=== PATIENT | male | born 1940 | race Caucasian/White ===

== ENCOUNTER 2019-01-08 13:14 | Inpatient (IN) ==
[2019-01-08] MEDS ORDERED: ZOFRAN IV PRN (13:58)
[2019-01-08] MEDS ORDERED: NS 500 ML IV ONE (14:01)
[2019-01-08] MEDS ORDERED: MYLICON PO PRN (14:09)
[2019-01-08 16:57] LABS: BASO# 0.01 X1000 (0.0-0.2); BASO% 0.1 % (0.0-0.8); HEMATOCRIT 35.6 % (42.0-52.0); HEMOGLOBIN 11.4 g/dL (14.0-18.0); LYMPH# 1.07 X1000 (1.2-3.4); LYMPH% 10.9 % (20.5-51.1); MCH 27.7 PG (27-31); MCV 86.4 FL (81-99); MONO# 0.49 X1000 (0.11-0.59); MPV 9.7 FL (7.4-10.4); NEUT# 8.22 X1000 (1.4-6.5); PLT 204 X1000 (130-400); RBC 4.12 XMIL (4.7-6.1); RDW 15.8 % (11.5-14.5); WBC 9.79 X1000 (4.8-10.8)
[2019-01-08 17:09] LABS: INR 1.29; PROTIME 17.1 Seconds (11.0-16.0)
[2019-01-08 17:10] LABS: PTT 38.9 Seconds (22.3-41.8)
[2019-01-08 17:12] LABS: ALB/GLOB RATIO 1.2; ALBUMIN 3.7 g/dL (3.5-5.0); CREATININE 1.6 mg/dL (0.7-1.2); POTASSIUM 4.6 mmol/L (3.5-5.1); TOTAL BILIRUBIN 0.59 mg/dL (0.20-1.00); TOTAL PROTEIN 6.9 g/dL (6.3-8.3)
--- NOTE | 2019-01-08 19:03 | Diag Imaging Result Doc PS360 ---
EXAM: FLAT/UPRIGHT ABD/1 VIEW CHEST INDICATION: vomiting/diarrhea TECHNIQUE: 3 views COMPARISON: 03/29/2018 FINDINGS: There are multiple air-fluid levels throughout the abdomen. It appears to be predominantly colonic indicating a diarrheal illness. There are probably a few small bowel air-fluid levels in the left upper quadrant, however. There is no evidence of large volume free abdominal gas. There is no evidence of organomegaly. The lungs are grossly clear. There is no discrete pleural fluid collection or pneumothorax. The cardiomediastinal silhouette and central vasculature are grossly unremarkable. IMPRESSION: Nonspecific air-fluid levels throughout the abdomen that is predominantly colonic. Electronically signed by Aj Kent 01/08/2019 7:01 PM
[2019-01-08] MEDS: ZYLOPRIM PO SCH (19:52)
[2019-01-08] MEDS: DELZICOL PO SCH (19:53)
[2019-01-08] MEDS: FLOMAX PO SCH (21:31)
--- NOTE | 2019-01-09 00:38 | HISTORY AND PHYSICAL ---
CHIEF COMPLAINT: Weakness, low blood, pressure, and nausea, vomiting, diarrhea. HISTORY OF PRESENT ILLNESS: The patient is a 78-year-old white male followed in my medical practice. He is also followed by Dr. Marino and by Dr. Banks. He had gone to Dr. Banks's office today but began feeling very weak and has been worsening over the past 2 weeks in that regard. He has had low blood pressure today in Dr. Banks's office and felt weak, as if he were going to pass out. He has developed nausea and vomiting, and some diarrhea, and abdominal bloating has been worsened recently, over the past 2 weeks. He has not been eating well nor drinking fluids, not been sleeping well at night at all. 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 Also, he suffers from some moderate renal insufficiency. MEDICATIONS: Prior to admission are Klor-Con 10 mEq, 1 p.o. every other day, he is off Lasix, he is on Aldactone 25 mg p.o. q.a.m., Eliquis 2.5 mg p.o. b.i.d., allopurinol 100 mg p.o. b.i.d., Flomax 0.4 mg p.o. b.i.d., Delzicol 400 mg, 2 tabs p.o. b.i.d., Phazyme 250 mg p.o. 4 times a day p.r.n. ALLERGIES: Bactrim, caused a metallic taste in his mouth in January 2018. PAST HISTORY: 1. Ulcerative colitis diagnosed 1989. 2. Hypertension diagnosed 1988. 3. Osteoarthritis. 4. Renal insufficiency. 5. BPH. 6. Gout diagnosed 2005. 7. Cirrhosis of the liver over the past couple years, followed by Dr. Marino. 8. DVT within the past few months. PAST SURGICAL HISTORY: 1. BCC removal from his nose. 2. Laparoscopic cholecystectomy December 2017. IMMUNIZATIONS: Pneumovax 23 given 01/07/2008 and 11/22/2017. Zostavax given 01/17/2013. Prevnar 13 given 08/19/2013. FAMILY HISTORY: Notable for hypertension in his mother. No diabetes in the family. Stroke in his maternal grandmother. RA in his father. Paternal grandfather with prostate cancer. Throat cancer in maternal grandfather. SD in his father and 3 uncles. SOCIAL HISTORY: Patient lives in [place]. He is remarried after being in 2004. Has 1 daughter. Retired from [employer]. Never been a smoker. Does not drink any alcohol. REVIEW OF SYSTEMS: Negative except as above, except patient with history of DVT right lower extremity back a few months ago, on chronic anticoagulation per Dr. Banks's recommendation. PHYSICAL EXAM: VITAL SIGNS: Blood pressure 102/62, pulse 91, height 5 feet 9 inches tall, is unable to obtain weight as he was unable to stand up on the scale. SKIN: Pale appearing, ill appearing. HEENT: FRAN, EOMI, sclerae anicteric. OP, there is some redness and dryness to the tongue. NECK: No LA, TMG, JVD, or bruits. CARDIOVASCULAR: RRR without murmur. LUNGS: CTA. BACK: No tenderness to palpation. No CVA tenderness. ABDOMEN: There is ascites noted on exam with some bloating. Active bowel sounds. GENITOURINARY/RECTAL: Deferred. EXTREMITIES: No calf tenderness, cords, or edema. NEUROLOGIC: Cranial nerves are intact. Moves all extremities well. No asterixis. ASSESSMENT: 1. Hypotension. 2. Generalized weakness. 3. Nausea, vomiting, diarrhea. 4. Anorexia. 5. Insomnia. 6. Cirrhosis of the liver, followed by Dr. Marino of idiopathic origin. 7. Chronic renal insufficiency, followed by Dr. Rea. 8. Anemia of chronic disease. 9. History of deep venous thrombosis right lower extremity, thought related to cirrhosis. 10. Gout. 11. Osteoarthritis. PLAN: Will admit the patient. Give him IV bolus of normal saline initially and check extensive labs to include CBC with differential, CMP, amylase, lipase, PT, PTT. We will check repeat venous Doppler right lower extremity. Check flat and upright of the abdomen and 1 view of the chest. Keep him n.p.o. except for medications, and we will continue current medications, especially leaving him on the Eliquis at this point. We will give him Zofran as needed for nausea, vomiting. Consider placement of a NG tube if he worsens in any way. cc: Maxx Vasquez MD
[2019-01-09] MEDS: ZYLOPRIM PO SCH ×3 (02:09→20:19)
[2019-01-09] MEDS: DELZICOL PO SCH ×3 (02:09→20:20)
[2019-01-09] MEDS ORDERED: OXY IR PO PRN (08:37)
[2019-01-09] MEDS: ALDACTONE PO SCH (08:50)
[2019-01-09] MEDS ORDERED: FLOMAX PO SCH (09:00)
--- NOTE | 2019-01-09 09:00 | PROGRESS NOTE ---
DATE: 01/09/2019 SUBJECTIVE: Patient had a difficult time last night with restless legs, unable to sleep. Abdominal pain was fair. He had no nausea and vomiting after some Zofran. He had 4 loose bowel movements since admission. OBJECTIVE: Vital signs: Afebrile, pulse 65, respirations 16, blood pressure 108/61. CARDIOVASCULAR: Regular rhythm and rate without distinct murmur. Lungs: Clear. Abdomen: Soft. Less bloating and distention noted. Still some mild bloating noted. This may be bloating instead of ascites as I initially thought. There are active bowel sounds. Extremities: No calf tenderness, cords or edema. Neurologic: Cranial nerves are intact. He is pale appearing. Venous Doppler right lower extremity done last evening. No results back yet. LABORATORY DATA/IMAGING: Reviewed from yesterday was good overall with satisfactory CBC, CMP, magnesium, PT, PTT. Flat and upright of the abdomen revealed prominent air-fluid levels in the colon, primarily. ASSESSMENT: 1. Hypotension, improved. 2. Generalized weakness, improved. 3. Nausea, vomiting, and diarrhea with colonic air-fluid levels and history of some ileus in the past. 4. Cirrhosis, idiopathic in nature. 5. Restless legs syndrome/insomnia. 6. Chronic renal insufficiency. 7. Anemia of chronic disease. 8. History of deep venous thrombosis right lower extremity, thought related to cirrhosis, on chronic Eliquis treatment now, and followed by Dr. Banks. 9. Gout. 10. Osteoarthritis. PLAN: We will give him clear liquids. Give him low-dose maintenance intravenous fluids after he received a bolus of normal saline yesterday. Continue Zofran. We will monitor his bowel movements. We will check stool studies. We will continue the Eliquis and his home medications. We will add Requip for restless legs syndrome. cc: Maxx Vasquez MD
[2019-01-09] MEDS: ELIQUIS PO SCH ×2 (10:41→20:19)
[2019-01-09] MEDS: POTASSIUM CHLORIDE 10 MEQ in NS 1,000 ML IV SCH (10:41)
[2019-01-09] MEDS: REQUIP PO SCH (20:19)
[2019-01-09] MEDS: FLOMAX PO SCH (20:20)
--- NOTE | 2019-01-10 08:54 | PROGRESS NOTE ---
DATE: 01/10/2019 SUBJECTIVE: Patient is still having some restless legs, but he saw some improvement with the Requip, although possibly had some mild side effects of the Requip, which is tolerable to the patient at this time. Still having occasional bloating, gas and diarrheal stools, but these are less than 4 a day. Feels like the bloating has improved some. OBJECTIVE: Vital Signs: Afebrile, pulse 67, respirations 18, blood pressure 106/56, O2 saturation on room air 98-100%. CV: RRR without murmur. Lungs: Cannot rule out minimal crackle, left lung base. Abdomen: Softer, less bloating, hyperactive bowel sounds noted. No pinpoint tenderness or mass. Extremities: No calf tenderness, cords or edema. Neurologic: Nonfocal. DIAGNOSTIC DATA: Stool study showed negative studies for WBCs, C difficile toxin and occult blood negative. Stool culture in progress, negative thus far. ASSESSMENT: 1. Hypotension, resolved. 2. Generalized weakness, improved. 3. Nausea, vomiting, and diarrhea. Overall improved. We will repeat flat and upright of the abdomen and 1 view of the chest today. 4. Idiopathic cirrhosis. 5. Restless leg syndrome/insomnia. 6. Chronic renal insufficiency. 7. Anemia of chronic disease. 8. History of deep vein thrombosis, right lower extremity, thought related to cirrhosis, now on chronic Eliquis treatment per Dr. Banks. 9. Gout. 10. Osteoarthritis. PLAN: We will ambulate the patient, increased to full liquids. Continue Requip at night for the restless legs. Will monitor for worsened side effects. Continue Eliquis for remote DVT. Consider addition of Welchol to bulk the stools if not improved in a day or two, but for now these are less than 4 a day. Await x-ray results today. cc: Maxx Vasquez MD
--- NOTE | 2019-01-10 08:59 | Diag Imaging Result Doc PS360 ---
EXAM: FLAT/UPRIGHT ABD/1 VIEW CHEST 01/10/2019 HISTORY: f/u diarrhea/abd pain TECHNIQUE: PA chest and flat and upright abdomen COMMENT: There is gas, fluid and some solid fecal debris in the colon. The small bowel is not distended. There is no evidence of organomegaly or mass. The appearance of the chest has not changed significantly since the previous study of 01/08/2019. IMPRESSION: Nonspecific abdomen, the possibility of enterocolitis cannot be excluded. Electronically signed by Robin Milligan 01/10/2019 8:57 AM
[2019-01-10] MEDS: POTASSIUM CHLORIDE 10 MEQ in NS 1,000 ML IV SCH (09:22)
[2019-01-10] MEDS: ZYLOPRIM PO SCH ×2 (09:30→21:01)
[2019-01-10] MEDS: ALDACTONE PO SCH (09:30)
[2019-01-10] MEDS: ELIQUIS PO SCH ×2 (09:30→21:01)
[2019-01-10] MEDS: DELZICOL PO SCH ×2 (09:31→21:00)
--- NOTE | 2019-01-10 18:55 | Extremity Venous Study ---
PROCEDURE NAME: Venous U/S Right Leg - 01/08/2019 REQUESTING PHYSICIAN: Maxx Vasquez MD READING PHYSICIAN: Edwin Corbin MD CLIENT ACCOUNT REPRESENTATIVE: [place]. INDICATION: Followup of DVT of the right leg. There is a comparison study on 03/29/2018. FINDINGS: Deep and superficial veins of the right lower extremity were imaged throughout their course. They are compressible and patent; however, there is chronic thrombus present in the right superficial femoral and popliteal veins. INTERPRETATION: Chronic deep venous thrombosis is present in the right superficial femoral and popliteal veins. This is improved compared to the prior study on 03/29/2018. cc: MD Maxx Chavarria MD
[2019-01-10] MEDS: FLOMAX PO SCH (21:01)
[2019-01-10] MEDS: REQUIP PO SCH (21:01)
[2019-01-11 06:14] LABS: BASO# 0.01 X1000 (0.0-0.2); BASO% 0.2 % (0.0-0.8); EOS# 0.09 X1000 (0.0-0.7); EOS% 1.8 % (0.0-10.0); HEMATOCRIT 26.6 % (42.0-52.0); HEMOGLOBIN 8.3 g/dL (14.0-18.0); LYMPH# 1.61 X1000 (1.2-3.4); LYMPH% 31.9 % (20.5-51.1); MCH 27.1 PG (27-31); MCHC 31.2 g/dL (33-37); MCV 86.9 FL (81-99); MONO# 0.35 X1000 (0.11-0.59); MONO% 6.9 % (1.7-9.3); MPV 9.7 FL (7.4-10.4); NEUT# 2.98 X1000 (1.4-6.5); NEUT% 59.2 % (42.2-75.2); PLT 175 X1000 (130-400); RBC 3.06 XMIL (4.7-6.1); RDW 15.5 % (11.5-14.5); WBC 5.04 X1000 (4.8-10.8)
[2019-01-11 06:54] LABS: AGAP 11; ALB/GLOB RATIO 1.3; ALBUMIN 2.9 g/dL (3.5-5.0); ALKALINE PHOSPHATASE 85 U/L (32-122); BUN 10 mg/dL (8-22); CALCIUM 8.3 mg/dL (8.8-10.2); CHLORIDE 109 mmol/L (98-107); COSMO 276; CREATININE 1.1 mg/dL (0.7-1.2); ESTIMATED GFR > 60; GLUCOSE 94 mg/dL (70-104); GOT 11 U/L (10-34); GPT < 5 U/L (10-44); POTASSIUM 4.4 mmol/L (3.5-5.1); SODIUM 139 mmol/L (136-145); TCO2 19 mmol/L (25-35); TOTAL BILIRUBIN 0.28 mg/dL (0.20-1.00); TOTAL PROTEIN 5.2 g/dL (6.3-8.3)
[2019-01-11 07:44] LABS: SED RATE 8 mm/hr (0-15)
[2019-01-11] MEDS ORDERED: WELCHOL PO SCH (09:00)
[2019-01-11] MEDS ORDERED: POTASSIUM CHLORIDE 10 MEQ in NS 1,000 ML IV SCH (09:00)
[2019-01-11] MEDS: DELZICOL PO SCH ×3 (09:30→21:28)
[2019-01-11] MEDS: ZYLOPRIM PO SCH ×3 (09:31→21:29)
[2019-01-11] MEDS: ELIQUIS PO SCH ×3 (09:33→21:28)
[2019-01-11] MEDS: ALDACTONE PO SCH (09:33)
[2019-01-11] MEDS ORDERED: FLOMAX PO ONE (12:32)
--- NOTE | 2019-01-11 16:31 | PROGRESS NOTE ---
DATE: 01/11/2019 SUBJECTIVE: The patient has had some watery loose stools about 2 a day and some bloating and gas, but overall improved since admission. He has had no nausea or vomiting. He has been only taken in full liquids, but has tolerated that rather well. He has been ambulating. OBJECTIVE: Vital Signs: Afebrile, pulse 58, respirations 16, blood pressure 102/58, O2 saturation on room air 98%. Cardiovascular: RRR. Lungs: CTA. Abdomen: Soft. Active bowel sounds. Mild distention. Repeated in examination later this afternoon after seeing him this morning with that exam as listed, and now we have increased his diet up to a GI soft diet and he has more bloating and he had some mild distention, still has some active bowel sounds. Extremities: No edema, calf tenderness or cords. Neurologic: Nonfocal. Cranial nerves intact. IMAGING: Abdominal x-ray done on 01/10/2019 revealed gas and fluid with some fecal debris in the colon. Small bowel not distended. No mass or organomegaly. No major change. Possibility of enterocolitis as noted per Dr. Milligan. Venous Doppler right lower extremity done on 01/08/2019 shows chronic DVT right superficial femoral and popliteal veins that is improved compared to prior study on 03/29/2018. LABORATORY DATA: Shows white count 5.04, hemoglobin has declined to 8.3 with dilution, hematocrit 26.6, MCV 86.9, platelets 175,000. Sedimentation rate 8. CMP shows improvement in creatinine down to 1.1 with some mild IV fluids given. Liver function tests normal. Albumin 2.9, total protein 5.2. Stool studies done yesterday, stool is negative for WBCs. Culture so far negative. Occult blood negative. Clostridium difficile toxin negative. ASSESSMENT: 1. Hypotension, resolved. 2. Weakness, improved. 3. Nausea, vomiting and diarrhea with some possible enterocolitis, fair. 4. History of remote ulcerative colitis followed by Dr. Marino in the past. 5. Idiopathic cirrhosis. 6. Restless legs syndrome/insomnia, somewhat improving with Requip. 7. Chronic renal insufficiency, improved with hydration. 8. Anemia of chronic disease with slight worsening, possibly somewhat dilution related. 9. Deep venous thrombosis chronic right lower extremity on chronic Eliquis treatment per Dr. Banks. 10. Gout. 11. Osteoarthritis. PLAN: Will will continue at this point the GI soft diet. We have added Welchol this morning 1 p.o. daily to try to bulk the stools. Continue Requip at night. Continue ambulation. Low IV hydration will be continued. Continue to follow stool studies. Dr. Sin will be seeing the patient this week in my absence. Possible discharge if he does well. If not would consider GI evaluation with Dr. Shaikh. cc: Maxx Vasquez MD
[2019-01-11] MEDS: FLOMAX PO SCH ×2 (19:45→21:28)
[2019-01-11] MEDS: REQUIP PO SCH ×2 (19:46→21:28)
[2019-01-12 06:24] LABS: BASO# 0.02 X1000 (0.0-0.2); BASO% 0.5 % (0.0-0.8); EOS# 0.07 X1000 (0.0-0.7); EOS% 1.7 % (0.0-10.0); HEMATOCRIT 26.3 % (42.0-52.0); HEMOGLOBIN 8.2 g/dL (14.0-18.0); LYMPH# 1.24 X1000 (1.2-3.4); LYMPH% 29.7 % (20.5-51.1); MCH 27.3 PG (27-31); MCHC 31.2 g/dL (33-37); MCV 87.7 FL (81-99); MONO% 7.2 % (1.7-9.3); MPV 9.9 FL (7.4-10.4); NEUT# 2.55 X1000 (1.4-6.5); NEUT% 60.9 % (42.2-75.2); PLT 160 X1000 (130-400); RDW 15.6 % (11.5-14.5); WBC 4.18 X1000 (4.8-10.8)
[2019-01-12] MEDS: DELZICOL PO SCH ×2 (08:59→23:07)
[2019-01-12] MEDS: WELCHOL PO SCH (08:59)
[2019-01-12] MEDS: ELIQUIS PO SCH ×2 (08:59→23:06)
[2019-01-12] MEDS: FLOMAX PO SCH ×2 (08:59→23:06)
[2019-01-12] MEDS: ZYLOPRIM PO SCH ×2 (08:59→23:07)
[2019-01-12] MEDS: ALDACTONE PO SCH (08:59)
[2019-01-12] MEDS ORDERED: SALINE LOCK IV FLUID XX ONE (11:08)
--- NOTE | 2019-01-12 11:40 | PROGRESS NOTE ---
DATE: 01/12/2019 SUBJECTIVE: Patient overall feeling better. Had a lot of gas expelled during the night. He ate a GI soft diet well and bloating has been very tolerable. He had 1 more formed stool this morning, and overall is feeling better. OBJECTIVE: Vital Signs: Afebrile, T-max 99.6 degrees, pulse 68, respirations 20, blood pressure 116/55, O2 saturation room air 100%. CV: RRR without murmur. Lungs: CTA. Abdomen: Soft abdomen. Active bowel sounds. No major bloating. No pinpoint tenderness. Extremities: Trace lower extremity edema at the ankles. Neurologic: CN 2 through 12 intact. Nonfocal. LABORATORY DATA: White count 4.188, hemoglobin 8.6, platelets 160,000. Stool studies all negative, including culture. ASSESSMENT: 1. Nausea, vomiting, diarrhea, improved/enterocolitis. 2. Ulcerative colitis, stable on medication per Dr. Marino. 3. Idiopathic cirrhosis. 4. Restless leg syndrome/insomnia, stable on Requip. 5. Chronic renal insufficiency, improved with hydration. 6. Anemia of chronic disease and some dilutional component, heme-negative stool. 7. Deep venous thrombosis, chronic, right lower extremity, on chronic Eliquis per Dr. Banks. 8. Gout. 9. Osteoarthritis. 10. Hypotension and weakness, resolved. PLAN: 1. Continue GI soft diet and 1 Welchol per day to help bulk the stools. 2. Ambulate the patient. 3. Saline lock. 4. If he continues to do well on GI soft diet, we will discharge home tomorrow. cc: Maxx Vasquez MD
[2019-01-12] MEDS: REQUIP PO SCH (23:06)
[2019-01-13] MEDS: ZYLOPRIM PO SCH (08:00)
[2019-01-13] MEDS: ELIQUIS PO SCH (08:00)
[2019-01-13] MEDS: WELCHOL PO SCH (08:00)
[2019-01-13] MEDS: ALDACTONE PO SCH (08:00)
[2019-01-13] MEDS: DELZICOL PO SCH (08:00)
[2019-01-13] MEDS: FLOMAX PO SCH (08:02)
[2019-01-13 11:24] VITALS: BP 113/52
--- NOTE | 2019-01-13 11:55 | DISCHARGE SUMMARY ---
ADMISSION DATE: 01/08/2019 DISCHARGE DATE: 01/13/2019 FINAL DIAGNOSES: 1. Ulcerative colitis. 2. Hypotension. 3. Generalized weakness. 4. Cirrhosis of idiopathic origin. 5. Chronic renal insufficiency. 6. Anemia of chronic disease. 7. Osteoarthritis. DISCHARGE MEDICATION: The usual medication at home, plus Welchol 2 g daily and Requip 1 mg at bedtime. HISTORY: This is the first recent [facility] admission for this 78-year-old white man, followed by Dr. Shaikh and Dr. Banks. He had been having progressive weakness over several weeks and had low blood pressure on admission. He had some abdominal bloating and had not been eating well. He was admitted for further evaluation and treatment. INITIAL LABORATORY: Hemoglobin 11.4, hematocrit 35.6, white blood count 9700. Sodium 135, potassium 4.6, BUN 18, creatinine 1.6, glucose 109. Liver functions normal. Amylase 30, lipase 22. HOSPITAL COURSE: He was hydrated, and BUN and creatinine improved to 10 and 1.1. Total protein is low at 5.2 and albumin 2.9. In addition to hydration, he was started on Requip for restless legs syndrome and given Welchol which seemed to help his abdominal discomfort and bloating. He has tolerated a GI soft diet for a couple of days and is ambulating. DISPOSITION: He is discharged home on the above medications to see Dr. Vasquez in about a week for follow-up. cc: MD Maxx Tubbs MD
== END 2019-01-13 13:02 | disposition home or self-care (01) | DRG 386 ==
LOC: DIRADM 13:14 → 4N 13:34
PROVIDERS: ADMIT Family Medicine; ATTEND Family Medicine
CPT/HCPCS: 74022; 80053; 82150; 82270; 83690; 83735; 84376; 85025; 85610; 85651; 85730; 87045; 87046; 87205; 87324; 89055; 93971; 94761; A9270; J3480; J7030; J7040

== ENCOUNTER 2019-03-15 15:10 | Inpatient (IN) ==
[2019-03-15] MEDS ORDERED: ZOFRAN IV ONE (15:33)
[2019-03-15] MEDS ORDERED: NS 500 ML IV ONE (15:33)
[2019-03-15 16:00] LABS: BASO# 0.01 X1000 (0.0-0.2); BASO% 0.1 % (0.0-0.8); EOS# 0.01 X1000 (0.0-0.7); EOS% 0.1 % (0.0-10.0); HEMATOCRIT 22.5 % (42.0-52.0); HEMOGLOBIN 6.8 g/dL (14.0-18.0); IMM GRAN# 0.02 X1000 (0.0-0.04); IMM GRAN% 0.2 % (0.0-0.5); LYMPH# 1.39 X1000 (1.2-3.4); LYMPH% 11.9 % (20.5-51.1); MCH 23.7 PG (27-31); MCHC 30.2 g/dL (33-37); MCV 78.4 FL (81-99); MONO# 0.59 X1000 (0.11-0.59); MONO% 5.1 % (1.7-9.3); MPV 8.7 FL (7.4-10.4); NEUT# 9.62 X1000 (1.4-6.5); NEUT% 82.6 % (42.2-75.2); PLT 412 X1000 (130-400); RBC 2.87 XMIL (4.7-6.1); RDW 16.1 % (11.5-14.5); WBC 11.64 X1000 (4.8-10.8)
--- NOTE | 2019-03-15 16:14 | Diag Imaging Result Doc PS360 ---
FLAT/UPRIGHT ABD/1 VIEW CHEST - 03/15/2019 INDICATION: distention TECHNIQUE: COMPARISON: 01/10/2019 FINDINGS: The chest is clear. There is high-grade dilation of much of the small bowel. Small bowel loops measure up to 6 cm in caliber. No definite rectal gas. No free air. IMPRESSION: High-grade small bowel obstruction. Electronically signed by Alfredo Goldsmith 03/15/2019 4:12 PM
[2019-03-15 16:28] LABS: ALB/GLOB RATIO 1.1; CALCIUM 8.1 mg/dL (8.8-10.2); CREATININE 1.3 mg/dL (0.7-1.2); POTASSIUM 3.7 mmol/L (3.5-5.1); TOTAL BILIRUBIN 0.31 mg/dL (0.20-1.00); TOTAL PROTEIN 5.7 g/dL (6.3-8.3)
--- NOTE | 2019-03-15 17:42 | Diag Imaging Result Doc PS360 ---
CT ABD/PELVIS W/IV CONT ONLY - 03/15/2019 INDICATION: vomiting COMPARISON: 03/29/2018 FINDINGS: There is a lobular uniform soft tissue density nodule in the right lower lobe. This measures 2 cm. No other nodules or infiltrates. The heart size is normal. There is essentially complete obstruction of the small bowel and colon at the level of the hepatic flexure of the colon. In this area, there is a tight focal stricture of the colon. See image #[id number]. There is a small amount of ascites. There is a suspicious mass in the anterior prostate projecting into the urinary bladder. This is in the midline. This measures 3.5 x 4 cm. The rectum is normal. There are cholecystectomy clips. Stable cysts in the liver. No liver masses. 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 Spleen size is normal. The spleen measures about 12 x 5 cm. There are moderate degenerative changes of the spine. No acute or suspicious bony lesion. IMPRESSION: 1. Extremely high-grade obstruction of the small bowel and colon at the level of the hepatic flexure of the transverse colon. There is a tight focal stricture here of uncertain origin. 2. Small amount of ascites. 3. 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 4. 2 cm suspicious pulmonary nodule in the right lower lobe. 5. Highly suspicious mass of the prostate gland. This exam was performed using automated exposure control, adjustment of mA or kV according to patient size, and/or use of iterative reconstruction technique Electronically signed by Alfredo Goldsmith 03/15/2019 5:40 PM
--- NOTE | 2019-03-15 18:52 | PROVIDER DOCUMENTATION ---
This chart was entered by Alexa Alex Scribe, acting as scribe for Edwin Bolaños MD. HPI-Abdominal Pain/GI Problem - General Chief Complaint: Constipation Stated Complaint: constipation Time Seen by Provider: 03/15/19 15:25 Source: patient, family () Allergies/Adverse Reactions: Patient Allergies Allergy/AdvReac Type Severity Reaction Status Date / Time gluten AdvReac SWELLING Verified 04/02/18 14:56 lactose AdvReac SWELLING Verified 04/02/18 14:56 sulfamethoxazole AdvReac DRY MOUTH Verified 03/29/18 18:38 [From Bactrim] trimethoprim [From Bactrim] AdvReac DRY MOUTH Verified 03/29/18 18:38 Home Medications: Home Medication List Medication Instructions Recorded Confirmed Last Taken Type Allopurinol 100 mg PO BID 12/19/17 03/15/19 01/07/19 21:00 History Mesalamine [Delzicol] 800 mg PO BID 12/19/17 03/15/19 01/07/19 21:00 History Tamsulosin [Flomax] 0.4 mg PO BID 03/29/18 03/15/19 01/07/19 21:00 History Spironolactone [Aldactone] 25 mg PO DAILY #30 tab 04/04/18 03/15/19 01/07/19 09:00 Rx Apixaban [Eliquis] 2.5 mg PO BID 01/08/19 03/15/19 01/08/19 09:00 History Potassium Chloride E.r. [Klor-Con] 10 meq PO DIRECTED PRN 03/15/19 03/15/19 Unknown History - History of Present Illness-ABD Nature of Presenting Problems: 78 yowm presents to the ed with cirrhosis of the liver complications. pt has distended abdomen with n/v. pt sts last BM was 6 days prior and was "very small". Patient states that he has not had an EGD and is unaware of the presence or absence of varices Abdominal Pain Onset Location: reports: generalized abdomen Quality of Pain: reports: fullness Severity in ED: reports: severe Onset/Duration: reports: 1 week ago Timing: reports: still present, constant, getting worse Activities at Onset: reports: light activity Exposure to sick contacts?: No Modifying Factors: improves with: nothing Associated Symptoms: reports: constipation, nausea, vomiting. denies: back/neck pain, chest pain, diarrhea, fever/chills, shortness of breath Last BM: 5 days ago Dark Stools Present?: reports: none noticed Rectal Bleeding: reports: none # of Diarrhea Episodes: 0 Rectal Pain: reports: none # of Vomiting Episodes: 3 Bruising or Bleeding Gums?: No Similar Symptoms Previously?: Yes (cirrhosis) Recently seen or treated by another doctor?: Yes (has seen pcp) Review of Systems - Adult - REVIEW OF SYSTEMS - ADULT Constitutional: denies: chills, fever Eyes: reports: no symptoms reported Ears, Nose, Mouth & Throat: reports: no symptoms reported Cardiovascular: denies: chest pain, palpitations Respiratory: denies: shortness of breath, wheezing Gastrointestinal: reports: see HPI, abdominal pain, constipation, nausea, vomiting Genitourinary: reports: no symptoms reported Musculoskeletal: reports: no symptoms reported Integumentary: reports: no symptoms reported Neurological: denies: dizziness/vertigo, headache/migraines Psychiatric: reports: no symptoms reported Endocrine: reports: no symptoms reported Hematologic/Lymphatic: reports: no symptoms reported Allergic/Immunologic: reports: no symptoms reported All Other Systems: Reviewed and Negative Past History - Adult - PAST MEDICAL HISTORY-ADULT Review of Records: reports: Nursing Assessment Review, Medications Reviewed Major Childhood Illnesses: reports: denies history Cardiovascular: reports: HTN Respiratory: reports: denies history Gastrointestinal: reports: liver disease Genitourinary: reports: kidney disease Musculoskeletal: reports: denies history Hand Dominance: Right Handed Neurological: reports: denies history Psychiatric: reports: denies history Endocrine/Immune: reports: denies history Other Conditions: reports: other cancer - PRIOR SURGERIES/PROCEDURES Surgical/Procedure History: reports: cholecystectomy, other (skin ca removed) - IMMUNIZATION STATUS Childhood Immunizations: See Nurse Assessment Flu Vaccine: See Nurse Assessment - FAMILY HISTORY Family History: reviewed, not pertinent - SOCIAL HISTORY Smoking: denies Substance Use: denies Living Situation: family Physical Exam-General - PHYSICAL EXAM-ADULT Initial Vital Signs Reviewed: Yes - CONSTITUTIONAL General Appearance: alert, mild distress, thin - EYES Eyes: PERRL/EOMI, pink conjunctivae - HEAD, EARS, NOSE, MOUTH & THROAT HENMT: normocephalic/atraumatic, moist mucous membranes, normal ENT inspection - NECK Neck: non-tender, full range of motion, supple, normal inspection - RESPIRATORY Respiratory: chest non-tender, lungs clear, normal breath sounds, no pleuratic chest pain, no respiratory distress, respiratory distress - CARDIOVASCULAR Cardiovascular: normal peripheral pulses, regular rate, rhythm - GASTROINTESTINAL (ABDOMEN) Abdominal Exam: soft, abnormal bowel sounds (hyperactive), distended, tenderness , other (tympanic) - GENITOURINARY Rectal Exam: normal rectal tone (no stool, results per lab) - LYMPHATIC Lymphatic: no adenopathy - MUSCULOSKELETAL Back Exam: normal inspection, no CVA tenderness, no vertebral tenderness Extremity: normal range of motion, non-tender, normal gait, normal inspection - SKIN Integumentary: normal turgor, warm/dry, pallor - NEUROLOGIC Neurologic: grossly normal, no motor/sensory deficits - PSYCHIATRIC Psych/Mental Status: normal mood/affect, normal thought content, normal thought process, oriented x 3 Progress - PLAN OF CARE/RESULTS Progress/Plan/Lab Results: Vital Signs - 8 hr 03/15/19 15:16 Pulse Rate 83 Respiratory Rate 18 Blood Pressure 136/76 O2 Sat by Pulse Oximetry 100 Orders Category Date Time Status CT ABD/PELVIS W/IV CONT ONLY [CT] Stat Exams 03/15/19 15:32 Ordered FLAT/UPRIGHT ABD/1 VIEW CHEST [RAD] Stat Exams 03/15/19 15:33 Ordered CBC WITH ELECTRONIC DIFF [HEME] Stat Lab 03/15/19 15:32 Uncollected COMPREHENSIVE METABOLIC PANEL [CHEM] Stat Lab 03/15/19 15:32 Uncollected LACTATE, PLASMA [CHEM] Stat Lab 03/15/19 15:32 Uncollected URINALYSIS W/POSS RFLX CULT [URINALYSIS] Stat Lab 03/15/19 15:32 Uncollected Ns 500 ml IV Bolus X1 Med 03/15/19 15:33 Ordered 0.9% Sodium Chloride Inj [Ns] 500 ml IV 999 mls/hr Ondansetron [Zofran] Med 03/15/19 15:33 Once 4 mg IV NOW ONE Result Diagrams: 03/15/19 15:47 03/15/19 15:47 - REASSESSMENT Reassessment #1 Time Reassessed: 16:32 Status: unchanged Reassessment #2 Time Reassessed: 17:50 Status: unchanged - XRAY 1 XRAY: Bilateral XRAY Study: Abdomen Impression: See EMR Report (FLAT/UPRIGHT ABD/1 VIEW CHEST - 03/15/2019 INDICATION: distention TECHNIQUE: COMPARISON: 01/10/2019 FINDINGS: The chest is clear. There is high-grade dilation of much of the small bowel. Small bowel loops measure up to 6 cm in caliber. No definite rectal gas. No free air. IMPRESSION: High-grade small bowel obstruction. Electronically signed by Alfredo Goldsmith 03/15/2019 4:12 PM 03/15/19 1612 Interpreting Physician: Alfredo Martinez MD Dictated Date/Time: 03/15/19 1611 cc: Edwin Bolaños MD; Maxx Vasquez MD) - CT/MRI 1 CT Study: Abdomen, Pelvis Impression: See EMR Report (CT ABD/PELVIS W/IV CONT ONLY - 03/15/2019 INDICATI ON: vomiting COMPARISON: 03/29/2018 FINDINGS: There is a lobular uniform soft tissue density nodule in the right lower lobe. This measures 2 cm. No other nodules or infiltrates. The heart size is normal. There is essentially complete obstruction of the small bowel and colon at the level of the hepatic flexure of the colon. In this area, there is a tight focal stricture of the colon. See image #[id number]. There is a small amount of ascites. There is a suspicious mass in the anterior prostate projecting into the urinary bladder. This is in the midline. This measures 3.5 x 4 cm. The rectum is normal. There are cholecystectomy clips. Stable cysts in the liver. No liver masses. 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 Spleen size is normal. The spleen measures about 12 x 5 cm. There are moderate degenerative changes of the spine. No acute or suspicious bony lesion. IMPRESSION: 1. Extremely high-grade obstruction of the small bowel and colon at the level of the hepatic flexure of the transverse colon. There is a tight focal stricture here of uncertain origin. 2. Small amount of ascites. 3. 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 4. 2 cm suspicious pulmonary nodule in the right lower lobe. 5. Highly suspicious mass of the prostate gland. This exam was performed using automated exposure control, adjustment of mA or kV according to patient size, and/or use of iterative reconstruction technique Electronically signed by Alfredo Goldsmith 03/15/2019 5:40 PM 05/31/19 1740 Interpreting Physician: Alfredo Goldsmith MD Dictated Date/Time: 03/15/19 1732 cc: Edwin Bolaños MD; Maxx Vasquez MD) - CONSULTS/PCP/HOSPITALIST Notification #1 *Consult/PCP/Hospitalist*: Dr. Lofton Reason/Comments: phone consult Consult Disposition: Admit (to Dr. Vasquez) #2 Consult: Dr. Brewer Time Discussed: 18:50 Reason/Comments: Will consult on the patient. Recommended against an NGT Departure - Departure Date of Disposition Decision: 03/15/19 Time of Disposition Decision: 18:50 DIAGNOSIS: Small bowel obstruction, Anemia Disposition: ADMITTED INPATIENT 09 Certified Medical Emergency: Emergent Condition: Serious Referrals and Follow-Ups: Maxx Vasquez MD [Primary Care Provider] - - Critical Care Note This patient required my direct & personal management of CC.: Yes Total Time (mins): 39 Critical Care Statement: This patient required my direct personal management to treat or rule out processes, the absence of which, could potentiallly result in sudden, clinically significant life or limb threatening deterioration. Attestation - Physician/ ZO Attestation Patient care was provided by Advanced Practice Provider:: No The physician spent face to face time with patient:: Yes Advanced Practice Provider documentation review:: Supervising physician onsite and consulted in the evaluation and care of this patient. The physician did have a face to face encounter with the patient. This chart was documented by the indicated scribe, (Alexa Alex Scribe) and accurately reflects the services I performed and decisions made by me, Edwin Bolaños MD, as attested by the provider's signature.
[2019-03-15] MEDS ORDERED: NS 1,000 ML IV ONE (19:05)
[2019-03-15 19:37] LABS: URINE SOURCE CLEAN CATCH
[2019-03-15 19:45] LABS: BILIRUBIN URINE NEGATIVE (NEGATIVE); BLOOD URINE NEGATIVE (NEGATIVE); COLOR YELLOW; GLUCOSE URINE NEGATIVE (NEGATIVE); KETONE URINE NEGATIVE (NEGATIVE); LEUKOCYTES URINE NEGATIVE (NEGATIVE); NITRITE URINE NEGATIVE (NEGATIVE); PH URINE 5.5; PROTEIN URINE TRACE mg/dL (NEGATIVE); TURBIDITY URINE CLEAR (CLEAR); UROBILINOGEN URINE NORMAL (NORMAL)
[2019-03-15 19:47] LABS: UR EPITHELIAL CELLS <10 /HPF (<10); URINE BACTERIA NEGATIVE /HPF; URINE RBC <10 /HPF (<10); URINE WBC <10 /HPF (<10)
[2019-03-15] MEDS ORDERED: 1/2 NS 500 ML IV ONE (20:16)
[2019-03-15 20:47] LABS: INR 1.64; PROTIME 20.7 Seconds (11.0-16.0)
[2019-03-15] MEDS: PROTONIX 80 MG in NS 80 ML IV SCH (21:00)
[2019-03-15] MEDS ORDERED: NS 1,000 ML ONE (21:53)
[2019-03-15] MEDS: ROCEPHIN 1 GM in NS 50 ML IV SCH (21:55)
[2019-03-15] MEDS: ZOFRAN IV PRN (22:25)
--- NOTE | 2019-03-15 22:31 | HISTORY AND PHYSICAL ---
CHIEF COMPLAINT: Abdominal pain for about 7 days. HISTORY OF PRESENT ILLNESS: The patient is a 78-year-old white male who presents with abdominal distention and abdominal pain actually now for about 6 days. He has a history of ulcerative colitis and liver disease of unknown etiology. Apparently, he does have cirrhosis. He does not drink alcohol regularly, and this is thought to be nonalcoholic in origin. 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 PAST MEDICAL HISTORY: Includes hypertension, and he used to take lisinopril for that but was changed over to spironolactone. He does have gouty arthritis. He has had a history of a DVT and has still been on Eliquis. PAST SURGICAL HISTORY: He has had a basal cell carcinoma removed from his nose and has had a cholecystectomy. ALLERGIES: He is allergic to Bactrim and has had reactions to benzodiazepines and to Requip. Apparently, he has problems with gluten and with lactulose. MEDICATIONS: Home medications include allopurinol 100 mg p.o. b.i.d., Delzicol (or mesalamine) 800 mg p.o. b.i.d., Flomax for BPH 0.4 mg p.o. b.i.d., spironolactone 25 mg p.o. daily, Eliquis 2.5 mg p.o. b.i.d. for blood clots, and potassium chloride ER 10 mEq daily. REVIEW OF SYSTEMS: Neurological: Denies headaches, seizures, visual problems, or hearing problems. Pulmonary: Denies cough, wheezing, or dyspnea. Cardiovascular: Denies chest pain, heart palpitations, PND, or orthopnea. Gastrointestinal: Has had distention of his abdomen and abdominal pains. He has not been able to have a bowel movement well. He does have a history of ascites from cirrhosis. The cause of his cirrhosis is unknown to him. Genitourinary: Does have urinary flow problems from BPH that are relieved well with Flomax. Endocrine: He does not have any diabetes, hypothyroidism, or pituitary problems. Musculoskeletal: Denies any problems with severe arthritis, back problems, or injury. Psychiatric: Denies depression or anxiety. FAMILY HISTORY: He has 1 brother who is in good health except for osteoarthritis. He has 1 daughter in good health. PHYSICAL EXAMINATION: VITAL SIGNS: Pulse is 83 and regular, respirations 18, blood pressure is 136/76, oxygen saturation is 100%. HEENT: Normocephalic. EOMs intact. PERRLA. Throat clear. Fundi not seen well due to constriction of pupils. NECK: Supple without thyromegaly, lymphadenopathy, or carotid bruits. LUNGS: Clear to auscultation without rhonchi, rales, or wheezes. HEART: Regular rate and rhythm without murmurs, gallops, or friction rubs. ABDOMEN: Distended, with some mild generalized tenderness. Appears to have ascites and appears to be obstructed. RECTAL EXAM: Done by the emergency room physician, and stool was sent for Hemoccult. I just found out that Hemoccult on his stool was positive for blood. EXTERNAL GENITALIA EXAM: Deferred. LYMPHATIC: Lymph nodes are nonpalpable in the cervical and supraclavicular areas. INTEGUMENT: Shows no lesions consistent with melanoma or other skin cancers. NEUROLOGICAL: Cranial nerves 2 through 12 intact grossly. Sensory and motor intact. Reflexes 1+ all. LABORATORY FINDINGS AND RADIOGRAPHIC STUDIES: Chest x-ray was essentially clear. Abdominal x-ray showed high-grade dilatation of much of the small bowel. Small loops of bowel measured up to 6 cm in caliber. No rectal gas seen. No free air. Impression was high-grade small-bowel obstruction. CT scan showed extremely high-grade obstruction of the small bowel and colon to the level of the hepatic flexure of the transverse colon. There was a tight focal stricture there of uncertain etiology. A small amount of ascites was seen. 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 A 2 cm suspicious nodule in the right lower lobe of the lung that was not seen on chest x-ray. Highly suspicious mass of the prostate gland. Laboratory shows a white count of 16,640. Hemoglobin is only 6.8, hematocrit 22.5. Sodium 133, potassium 3.7, creatinine 1.3, BUN 35. The patient does tell me that he has seen Dr. Rea, Nephrology, for kidney failure. Total protein is slightly low at 5.7, total albumin slightly low at 3.0. ADMITTING DIAGNOSES: 1. High-grade small-bowel obstruction. 2. Anemia. 3. Gastrointestinal bleed. 4. Pulmonary nodule. 5. Suspicious lesion in prostate gland. 6. Ulcerative colitis. 7. History of deep venous thrombosis. PLAN: We will admit to the ICU. Put in an NG tube. We will give IV fluids. We will consult GI and Surgery. May eventually need to see Urology and Pulmonology. The patient will probably need blood transfusion as well. cc: Chris Lofton Jr, MD
[2019-03-16] MEDS ORDERED: DILAUDID IV ONE (00:18)
[2019-03-16 06:33] LABS: CREATININE 1.2 mg/dL (0.7-1.2)
[2019-03-16 06:34] LABS: BASO# 0.01 X1000 (0.0-0.2); BASO% 0.1 % (0.0-0.8); EOS# 0.03 X1000 (0.0-0.7); EOS% 0.4 % (0.0-10.0); HEMATOCRIT 27.5 % (42.0-52.0); HEMOGLOBIN 8.7 g/dL (14.0-18.0); IMM GRAN# 0.02 X1000 (0.0-0.04); IMM GRAN% 0.2 % (0.0-0.5); LYMPH# 1.72 X1000 (1.2-3.4); LYMPH% 21.2 % (20.5-51.1); MCH 25.1 PG (27-31); MCHC 31.6 g/dL (33-37); MCV 79.5 FL (81-99); MONO# 0.59 X1000 (0.11-0.59); MONO% 7.3 % (1.7-9.3); MPV 8.6 FL (7.4-10.4); NEUT# 5.76 X1000 (1.4-6.5); NEUT% 70.8 % (42.2-75.2); PLT 281 X1000 (130-400); RBC 3.46 XMIL (4.7-6.1); RDW 16.4 % (11.5-14.5); WBC 8.13 X1000 (4.8-10.8)
[2019-03-16] MEDS: PROTONIX 80 MG in NS 80 ML IV SCH ×2 (08:00→17:32)
[2019-03-16] MEDS: ROCEPHIN 1 GM in NS 50 ML IV SCH ×2 (08:07→21:18)
--- NOTE | 2019-03-16 08:51 | Diag Imaging Result Doc PS360 ---
CHEST-PORTABLE - 03/15/2019 INDICATION: Verify NG placement COMPARISON: 03/15/2019 FINDINGS: There is a nasogastric tube in good position in the gastric fundus. IMPRESSION: Nasogastric tube in good position. Electronically signed by Alfredo Goldsmith 03/16/2019 8:48 AM
[2019-03-16] MEDS ORDERED: NS 500 ML ONE (10:47)
--- NOTE | 2019-03-16 11:13 | Diag Imaging Result Doc PS360 ---
ABDOMEN FLAT/UPRIGHT - 03/16/2019 INDICATION: sbo COMPARISON: 03/15/2019 FINDINGS: There is a high-grade small bowel obstruction. There is a nasogastric tube in good position in the stomach. No evidence of free air. IMPRESSION: Nasogastric tube in good position. High-grade small bowel obstruction. Electronically signed by Alfredo Goldsmith 03/16/2019 11:10 AM
--- NOTE | 2019-03-16 11:17 | GENERAL SURGERY CONSULTATION ---
DATE: 03/16/2019 HISTORY OF PRESENT ILLNESS: Mr. Kaiser is a 78-year-old gentleman who presents with abdominal distention, nausea, vomiting. In questioning he and his , he has had intermittent episodes of crampy abdominal pain, nausea, vomiting over the past few months. He would have severe cramps, go vomit a large amount, and then be relieved. In the past few days though, he has become significantly worse with almost no flatus or bowel movement. Because of the significant pain, he seeks medical attention. He is also found to be anemic. PAST MEDICAL HISTORY: He has a history of ulcerative colitis for many years that he has been treated medically for. His most recent colonoscopy was apparently about [address] Shaikh. Apparently polyps were found by history, but no other significant abnormalities. He also has a history of cirrhosis of unknown etiology. He has a history of hypertension and was diagnosed with DVT about 1 year ago and has been on Eliquis since. PAST SURGICAL HISTORY: Previous surgery includes a cholecystectomy 1 year ago by myself and a history of basal cell carcinoma removed from his nose. MEDICATIONS: His medications at home include allopurinol, Flomax, Aldactone, Eliquis, and potassium chloride. ALLERGIES: He is allergic to Bactrim, Requip, and benzodiazepine. REVIEW OF SYSTEMS: Primarily pertinent for the GI tract symptoms with crampy abdominal pain, nausea, vomiting. FAMILY HISTORY: Pertinent for osteoarthritis. PHYSICAL EXAMINATION: Vital Signs: On examination, he is afebrile. Heart rate 67, respiratory rate is 10, blood pressure 114/57. General: He is somewhat pale appearing and speaks low. Pulmonary: He has bilateral breath sounds. Heart: Regular rate and rhythm. Abdomen: Distended, tympanitic. He does have a right inguinal hernia, but it is easily reducible. Extremities: Femoral pulses are present. No peripheral edema. Neurologic: He is awake, alert, and oriented. DIAGNOSTIC DATA: Laboratory data reveals a white count of 8000; hemoglobin was 6.8 when he came in and after 2 to units of blood is up to 8.7. Prothrombin time 20.7 with an INR 1.6. BUN 31, creatinine 1.2. CT scan suggests a bowel obstruction, possibly hepatic flexure stricture. ASSESSMENT: The history is fairly convincing for a bowel obstruction with intermittent severe crampy pain and severe vomiting. It seems that it has progressed to the point now that he has almost a complete obstruction. PLAN: The plan will be to leave off his Eliquis for 48 hours before intervening. We will give him 2 more units of blood and give him some fresh frozen plasma to correct his coagulopathy and treat his anemia and then plan for exploratory laparotomy in the morning of March 17. I have discussed with he and his . They understand and agree to proceed. cc: MD Chris Bruno Jr, MD MTDD
--- NOTE | 2019-03-16 13:47 | PROGRESS NOTE ---
DATE: 03/16/2019 SUBJECTIVE: The patient says he feels a little bit better. His abdomen has gone down with NG tube. OBJECTIVE: Vital Signs: Temperature is 97.6 degrees Fahrenheit, blood pressure 115/58, respirations 10, pulse 68 and regular. HEENT: Normocephalic. EOMS intact. PERRLA. Throat clear. Lungs: Clear to auscultation and percussion without rhonchi, rales, or wheezes. Heart: Regular rate and rhythm sounding today. Abdomen: Soft. Active bowel sounds, but distended. Neurological: Exam intact grossly. LABORATORY DATA: Shows a white count of 8130, hemoglobin is 8.7, hematocrit 27.5. Surgery has been by and has ordered more blood transfusions. Plans on taking him to surgery tomorrow unless we see any improvement. I will get another abdominal film on him. ASSESSMENT: 1. High-grade small bowel obstruction. 2. Anemia. 3. Gastrointestinal bleed. 4. Pulmonary nodule. 5. Suspicious lesion in prostate gland. 6. Ulcerative colitis. 7. History of deep venous thrombosis. PLAN: Continue support. Appreciate help from Gastroenterology and Surgery. cc: Chris Lofton Jr, MD
[2019-03-17 06:51] LABS: CALCIUM 8.5 mg/dL (8.8-10.2); CREATININE 1.3 mg/dL (0.7-1.2); POTASSIUM 3.5 mmol/L (3.5-5.1)
--- NOTE | 2019-03-17 07:08 | GASTROENTEROLOGY CONSULTATION ---
DATE: 03/16/2019 REASON FOR CONSULTATION: Anemia and GI bleed and bowel obstruction. HISTORY OF PRESENT ILLNESS: Mr. Kaiser is a 78-year-old male who was admitted on 03/15/2019 for symptoms of abdominal pain the last 7 days. He had imaging done in the hospital which showed evidence of extremely high-grade obstruction of the small bowel and colon to the level of hepatic flexure. Surgery was consulted. Dr. Brewer has seen the patient and planning to do a laparoscopy tomorrow. The patient was on Eliquis at home and this was discontinued in order prepare for surgery. Was also noted to be anemic on admission. He was given 2 units of blood transfusion. He had NG tube placed and done in the hospital to help with the bowel obstruction. Gastroenterology was consulted for possible GI bleeding. PAST MEDICAL HISTORY: Hypertension, gout, DVT. PAST SURGICAL HISTORY: Basal cell carcinoma removed from his nose, cholecystectomy, colonoscopy [address] Shaikh. ALLERGIES: Bactrim and benzodiazepines, Requip, gluten and lactulose. FAMILY HISTORY: Denies any family history of colon cancer. His 1 brother who has osteoarthritis. SOCIAL HISTORY: He is . His is very supportive present bedside. He has never been a smoker. He does not drink any alcohol. REVIEW OF SYSTEMS: Denies any fevers, rigors, or chills. Does complain of feeling weak and tired. He does complain abdominal pain and nausea and he does have history of gout. He denies any neurologic complaints. PHYSICAL EXAM: Temperature 97.8 degrees, pulse of 73, respiratory 15, blood pressure 118/50, saturating 92% room air, body weight of 115 pounds 11.2 ounces, BMI 17 kg.General: Thinly built lying in bed in no acute distress. HEENT: Pale conjunctivae. No icterus. NG tube in place. Neck: Supple. Abdomen: Protuberant, discomfort in the right upper quadrant. No rebound. Extremities: No cyanosis, clubbing. Neuro: Alert, awake, oriented time, place, person. LABS: Hemoglobin and hematocrit is 8.7, 27.5, white count of 8.13, platelet count of 281,000. Sodium 130, potassium 4, chloride 100, bicarb 21, anion gap 12, BUN of 31, creatinine 1.2, glucose of 93, calcium is 8, AST 15, ALT 7, total protein is 5.7, albumin of 3, lactate of 1.4. PSA 4.03. Urinalysis showing trace protein and INR 1.64, PT of 20.7 and blood culture x2 were drawn yesterday they are currently pending. One blood culture showed evidence of gram-negative rods. The stool for occult blood was positive. CT scan the abdomen and pelvis showed extremely high-grade obstruction of the small bowel and colon at the level hepatic flexure the transverse colon. There is a tight focal stricture here of uncertain origin, small amount of ascites covering his transformation of the main portal vein, reason is unclear, 2 cm suspicious pulmonary nodule in the right lower lobe, highly suspicious mass of the prostate gland. IMPRESSION AND PLAN: 1. High-grade small bowel obstruction. In this regard the patient is scheduled for laparoscopy tomorrow Dr. Brewer. 2. Anemia. Continue to watch for now, transfuse as needed. His Eliquis was withheld in preparation surgery tomorrow. 3. Positive Hemoccult question of gastrointestinal blood loss. Continue treat conservatively with PPIs and blood transfusion. 4. New diagnosis of pulmonary nodule this is as primary team. 5. Question of prostate mass on imaging this is being the primary team. 6. Remote history of ulcerative colitis. Will obtain records from Dr. Shaikh's office. 7. History of deep vein thrombosis, his Eliquis withheld. 8. Continue on Protonix drip for now. Will continue to watch him conservatively. He has NG tube in place with intermittent suction. 9. We will follow along. The above plan was discussed with the patient and family at bedside and all questions answered. Please call us with any further questions. Dr. Shaikh will resume the care Monday. cc: MD Chris Munguia Jr, MD Dr. Harbin MTDD
[2019-03-17 07:09] LABS: BASO# 0.01 X1000 (0.0-0.2); BASO% 0.2 % (0.0-0.8); EOS# 0.04 X1000 (0.0-0.7); EOS% 0.6 % (0.0-10.0); HEMATOCRIT 35.6 % (42.0-52.0); LYMPH# 1.07 X1000 (1.2-3.4); LYMPH% 17.2 % (20.5-51.1); MCH 26.8 PG (27-31); MCHC 33.7 g/dL (33-37); MCV 79.6 FL (81-99); MONO# 0.58 X1000 (0.11-0.59); MONO% 9.3 % (1.7-9.3); NEUT# 4.52 X1000 (1.4-6.5); NEUT% 72.7 % (42.2-75.2); PLT 208 X1000 (130-400); RBC 4.48 XMIL (4.7-6.1); WBC 6.22 X1000 (4.8-10.8)
[2019-03-17] MEDS ORDERED: HURRICAINE SPRAY (DOSE) ONE (07:21)
[2019-03-17] MEDS ORDERED: STERILE WATER INJ. ONE (07:30)
[2019-03-17] MEDS ORDERED: XYLOCAINE-MPF 2% ONE (07:30)
[2019-03-17] MEDS ORDERED: QUELICIN (DOSE) ONE (07:30)
[2019-03-17] MEDS ORDERED: ROBINUL ONE (07:30)
[2019-03-17] MEDS ORDERED: NORCURON ONE (07:30)
[2019-03-17] MEDS ORDERED: FENTANYL ONE (07:31)
[2019-03-17] MEDS ORDERED: DIPRIVAN 1% ONE (07:31)
--- NOTE | 2019-03-17 08:04 | GENERAL SURGERY PROGRESS NOTE ---
DATE: 03/17/2019 It is 7:35 in the morning. Mr. Kaiser feels better but he has really had no bowel activity. He continues distended and tympanitic. He has had quite a bit out his NG tube. His hemoglobin is up to 12 this morning. BUN 27, creatinine 1.3. The plan will be to proceed with laparotomy this morning. I have discussed this with him, the possible need for a colostomy. He understands and agrees to proceed. cc: MD Chris Bruno Jr, MD
[2019-03-17] MEDS: ROCEPHIN 1 GM in NS 50 ML IV SCH ×2 (08:27→20:43)
[2019-03-17] MEDS ORDERED: NIMBEX ONE (09:03)
[2019-03-17] MEDS ORDERED: AMIDATE ONE (09:04)
[2019-03-17] MEDS ORDERED: SODIUM CHLORIDE 0.9% 20 ML ONE (09:04)
[2019-03-17] MEDS ORDERED: NEO-SYNEPHRINE ONE ×2 (09:04→10:36)
[2019-03-17] MEDS ORDERED: SODIUM CHLORIDE 0.9% 10 ML ONE ×2 (09:08→10:28)
[2019-03-17] MEDS ORDERED: MARCAINE 0.25% ONE (09:08)
[2019-03-17] MEDS ORDERED: EXPAREL 1.3% ONE (09:08)
[2019-03-17] MEDS ORDERED: ZOFRAN ONE (10:03)
[2019-03-17] MEDS ORDERED: NEOSTIGMINE ONE (10:18)
[2019-03-17] MEDS ORDERED: DILAUDID IV PRN (11:56)
--- NOTE | 2019-03-17 11:56 | OPERATIVE NOTE ---
PROCEDURE DATE: 03/17/2019 PROCEDURE: Right colectomy with ileocolostomy. SURGEON: Shay Brewer MD. JOINT CUTTER MACHINE: Lucia. PREOPERATIVE DIAGNOSIS: Bowel obstruction. POSTOPERATIVE DIAGNOSIS: Colonic obstruction at the hepatic flexure, probable malignancy. DESCRIPTION OF OPERATION: Satisfactory general endotracheal anesthesia was achieved. The anesthesiologist as a field block. The abdomen was then prepped and draped in a sterile fashion. We made a midline incision. We carried our incision through the subcutaneous tissue through the midline fascia. Upon entering the abdominal cavity. There was a lot of ascites that we suctioned out of the abdominal cavity. The small bowel was dilated throughout its extent from the ligament of Treitz all the way to the ileocecal valve. The appendix was even dilated. Proximal colon was also dilated. The transverse and descending colon was decompressed. A hard mass that was palpated in the colon at the hepatic flexure was the source of the obstruction. We then proceeded to mobilize the right colon out of the retroperitoneum incising along the white line of Toldt. We did this until we could deliver the right colon out of the retroperitoneum. We then divided the greater omentum with LigaSure. We entered the lesser sac. We then scored the peritoneum just to the right of the middle colic vessels. We cleaned off the colon and divided the colon with a IDALIA 80 blue cartridge. We then decided to do a right colectomy. Since this probably was a colon cancer at the hepatic flexure, we then cleaned off the ileum and divided it with a IDALIA 80 as well. We then proceeded to divide the mesentery with the LigaSure and the major colic vessels were clamped and divided with Alie clamps, and suture ligated with 2-0 silk suture ligature. We continued to dissect the mesentery until the colon was handed off. We then had a decompressed transverse colon and a dilated ileum. Since this was the right colon, I felt like we could go ahead and do a primary anastomosis. So I approximated the side of the ileum to the side of the transverse colon. We placed a 3-0 silk to approximate those. Some of the staple line of the bowel was covered with 3-0 silks in a Lembert fashion. We milked the fluid back out of the ileum and used a DeBakey clamp lightly on the bowel to keep the fluid from coming to the anastomosis. We then laid laps around it and cut off the corner of the colon and the corner of the small bowel. Both had good viability. We introduced a IDALIA 80 there and did a staple [id number]-[id number] anastomosis. We grasped the open end of the bowel with Allis and stapled it off with a TA-60 blue cartridge. We then inverted those the staple line with 3-0 silks in a Lembert fashion. We changed gloves and contaminated got rid of the contaminated instruments. At this point, we then placed 3-0 silks at the opposite end of the staple line to take the tension off the staple line. We then closed the mesentery with 3-0 and 2-0 silks. We then milked some of the fluid through the anastomosis into the transverse colon. It went easily and there was no leak. The NG tube was noted within the stomach in appropriate position. It was placed on suction. Hemostasis was satisfactory. We palpated the colon. No other lesions were palpated. No other masses are seen along the course of the small bowel. We then proceeded to close the abdomen with 2-0 chromic in the peritoneal and a #2 Prolene in the fascia. We irrigated the subcutaneous tissue and closed the skin with darnell. A sterile dressing was applied. He tolerated it well and was sent to the recovery room in satisfactory condition. cc: MD Chris Bruno Jr, MD Khurshid Yousuf, MD Stephen W. Harbin, MD
[2019-03-17] MEDS: OFIRMEV 1000 MG/ISOTONIC SOLN 1,000 MG/100 ML BOTTLE IV SCH ×3 (12:11→23:48)
[2019-03-17] MEDS: D5 1/2 NS + KCL 10 MEQ 1,000 ML IV SCH ×2 (12:53→20:43)
--- NOTE | 2019-03-17 14:25 | PROGRESS NOTE ---
DATE: 03/17/2019 SUBJECTIVE: The patient had surgery earlier this morning. I did not get to see him initially when I came in, as he was already in the operating room. He is back now. He is very sleepy. I did not really talk with him much. He aroused just slightly. His and daughter were in the room, and I did talk with them. The patient had a colonic obstruction at the hepatic flexure, probable malignancy, according to Dr. Brewer. OBJECTIVE: Vital Signs: Blood pressure is 105/49, respirations 19, pulse 66, temperature 97.1 degrees Fahrenheit. HEENT: Normocephalic. Lungs: Clear to auscultation and percussion without rhonchi, rales, or wheezes. Heart: Regular rate and rhythm without murmurs, gallops, or friction rubs. Abdomen: A little less distended. Decreased bowel sounds. He is postop. Neurological: Unable to assess completely as he is very sleepy. LABORATORY: Shows white count 6220, hemoglobin 12, hematocrit 35.6, potassium 3.5. Electrolytes otherwise normal. Creatinine is 1.3. BUN 27. ASSESSMENT: 1. High-grade colonic obstruction. He had a small-bowel obstruction with this as well. 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 2. Anemia. 3. Gastrointestinal bleed. 4. Pulmonary nodule. 5. Suspicious lesion in prostate gland. 6. Ulcerative colitis. 7. History of deep venous thrombosis. PLAN: Continue support. Awaiting pathology report on mass in colon. Also will need to consider mass on prostate, but PSA is just 4.03. According to the patient's , he has been running around 4 for some time now, so that does not sound like it has changed much. Also he has a pulmonary nodule which may or may not be of consequence but should be followed up. cc: Chris Lofton Jr, MD
[2019-03-17] MEDS: FLOMAX PO SCH (20:35)
--- NOTE | 2019-03-18 04:16 | GASTROENTEROLOGY PROGRESS NOTE ---
DATE: 03/17/2019 ADMISSION PHYSICIAN: Dr. Vasquez. PRIMARY PHYSICIAN: Dr. Shaikh. SUBJECTIVE.: The patient had surgery with Dr. Shay Brewer today and it showed evidence of colonic obstruction, hepatic flexure, problem malignancy. He had an ileocolostomy done. He is sleepy at the moment. I spoke to the family at bedside. OBJECTIVE: Vital signs: Temperature is 97 degrees, pulse rate 66, respiratory rate 16, blood pressure 122/57, oxygen saturation 98% on room air. Body weight of 115 pounds 11.2 ounces. General Appearance: Thinly built, lying in bed, in no acute distress. He is currently sleepy. HEENT: Pale conjunctivae. NG tube in place. No icterus. Neck: Supple. Adomen: Has a midline surgical dressing noted. No guarding. Extremities: No cyanosis or clubbing. Neurologic: He is sleepy at the moment. LABORATORY DATA: Hemoglobin and hematocrit is 12 and 35.6, white count of 6.2, platelet count of 208,000. Sodium 136, potassium 3.5, chloride 104, bicarbonate of 17, anion gap 15, BUN of 27, creatinine 1.3, glucose of 65, calcium 8.5. ASSESSMENT AND PLAN: 1. High-grade colonic obstruction secondary to probable malignancy. He is status post laparotomy with an ileocolostomy by Dr. Brewer today. Continue management per Surgery Team. 2. Anemia. Continue to watch for now. 3. Gastrointestinal bleeding likely secondary to colonic mass. 4. History of ulcerative colitis in the past. Aware. 5. Pulmonary nodule on imaging noted. Being managed per primary team. 6. Suspicious lesion in the prostate gland. Aware. Being managed per primary team. 7. History of deep venous thrombosis. Aware. 8. Gastrointestinal prophylaxis with proton pump inhibitors. 9. The above plans discussed further with the patient and family at bedside. We will consult Dr. Shaikh in the morning so that he can follow up on the patient. 10. Please call us with any further questions. cc: MD Chris Bucio Jr, MD Stephen Harbin
[2019-03-18] MEDS: D5 1/2 NS + KCL 10 MEQ 1,000 ML IV SCH ×5 (04:47→23:01)
[2019-03-18] MEDS: OFIRMEV 1000 MG/ISOTONIC SOLN 1,000 MG/100 ML BOTTLE IV SCH ×4 (06:19→23:01)
--- NOTE | 2019-03-18 06:58 | EKG Report ---
Test Performed on : 03/16/2019 12:14:05 PM Test Reason : pre surgery Blood Pressure : / mmHG Vent. Rate : 078 BPM Atrial Rate : 078 BPM P-R Int : 118 ms QRS Dur : 072 ms QT Int : 398 ms P-R-T Axes : 040 046 029 degrees QTc Int : 453 ms Sinus rhythm. with premature atrial complexes. Otherwise normal ECG When compared with ECG of 20-DEC-2017 14:55, premature atrial complexes. are now present Confirmed by Ned ZAVALETA, Merrick Pederson ([id number]) on 03/20/2019 9:38:42 AM
[2019-03-18 07:02] LABS: BASO# 0.02 X1000 (0.0-0.2); BASO% 0.2 % (0.0-0.8); EOS# 0.01 X1000 (0.0-0.7); EOS% 0.1 % (0.0-10.0); HEMATOCRIT 35.8 % (42.0-52.0); HEMOGLOBIN 11.9 g/dL (14.0-18.0); IMM GRAN# 0.02 X1000 (0.0-0.04); IMM GRAN% 0.2 % (0.0-0.5); LYMPH# 1.01 X1000 (1.2-3.4); LYMPH% 8.6 % (20.5-51.1); MCHC 33.2 g/dL (33-37); MCV 78.3 FL (81-99); MONO# 0.65 X1000 (0.11-0.59); MONO% 5.5 % (1.7-9.3); MPV 8.9 FL (7.4-10.4); NEUT# 10.09 X1000 (1.4-6.5); NEUT% 85.4 % (42.2-75.2); PLT 249 X1000 (130-400); RBC 4.57 XMIL (4.7-6.1); RDW 17.1 % (11.5-14.5)
[2019-03-18 07:21] LABS: CALCIUM 7.4 mg/dL (8.8-10.2); CREATININE 1.3 mg/dL (0.7-1.2); POTASSIUM 3.7 mmol/L (3.5-5.1)
--- NOTE | 2019-03-18 07:55 | GENERAL SURGERY PROGRESS NOTE ---
DATE: 03/18/2019 SUBJECTIVE: Mr. Kaiser is now postop day 1 after right colectomy for an obstructive cancer at the hepatic flexure. He is doing generally well. OBJECTIVE: He is afebrile, heart rate 75, blood pressure 128/67. His abdomen is softer. He says he has passed some flatus. Intake 2775, output 1135. NG tube put out 300. LABORATORY DATA: Laboratory today reveals white count 11,800, hemoglobin 11.9. He does have a positive blood culture for Klebsiella. MEDICATIONS: He is on Rocephin. ASSESSMENT: I think Mr. Kaiser is doing generally well. I will keep his nasogastric in place today. I do think he is acceptable for moving to the floor when okay with the primary medical team. Will reorder his labs for tomorrow. cc: MD Chris Bruno Jr, MD
[2019-03-18] MEDS: FLOMAX PO SCH ×2 (08:38→20:52)
[2019-03-18] MEDS: ROCEPHIN 1 GM in NS 50 ML IV SCH ×2 (08:43→20:17)
[2019-03-18] MEDS: ENTEREG PO SCH ×2 (08:43→20:06)
--- NOTE | 2019-03-18 09:17 | PROGRESS NOTE ---
DATE: 03/18/2019 SUBJECTIVE: The patient remains in the ICU. He is postop day #1 after right colectomy due to hepatic flexure mass thought possible CAD. OBJECTIVE: Afebrile, pulse 77, respirations 16, and blood pressure 127/68. O2 saturation on room air 100%. NG tube in place. Scherer catheter in place. Pale appearing. Status post 4 units PRBC's transfused and 2 units of FFP. Cardiovascular: RRR. Lungs: Clear. Extremities: No edema. Neurologic: Nonfocal. Moves all extremities well. Alert and oriented x3. LABORATORY: White count 11.8, hemoglobin 11.9, and platelets 249,000. Sodium 135, potassium 3.7, chloride 110, CO2 18, BUN 28, creatinine 1.3, glucose 181, and calcium 7.4. ASSESSMENT: 1. Postoperative day #1, status post right colectomy due to colonic mass, rule out CA. 2. Anemia status post 4 units PRBC transfused. 3. Coagulopathy with cirrhosis. 4. Pulmonary nodule. 5. Prostate gland nodule. 6. UC. 7. History of DVT. 8. One of 2 blood cultures growing out Klebsiella from the blood. 9. Chronic renal insufficiency. PLAN: The patient remains on Rocephin. He is on IVF per Dr. Brewer. Flomax. He has been followed by several physicians to include Dr. Marino, Dr. Guevara and Dr. Rea outpatient. Continue supportive measures postoperatively. cc: MD Chris Downey Jr, MD
--- NOTE | 2019-03-18 14:07 | GASTROENTEROLOGY PROGRESS NOTE ---
DATE: 03/18/2019 SUBJECTIVE: Patient was awake and alert. His was at the bedside. Patient had surgery on 03/17/2019 right colectomy and ileocolostomy. Patient currently has NG tube to low intermittent suction. He has passed some air. OBJECTIVE: Vital Signs: Temperature 97.7 degrees, pulse 71, respirations 17, blood pressure 124/67. General: The patient was awake and alert. No acute distress. Abdomen: With dressing intact. Hypoactive bowel sounds. NG tube to low intermittent suction. LABORATORY: Hematology. WBC 11.80, hemoglobin 11.9, hematocrit 35.8, MCV 78.3. Chemistry. Sodium 135, potassium 3.7, chloride 110, CO2 of 18, BUN 28, creatinine 1.3, glucose 181. ASSESSMENT AND PLAN: 1. Colonic obstruction related to mass in the hepatic flexure. Waiting on biopsy results. 2. Anemia stable. 3. Possible lesion in the prostate. 4. History of ulcerative colitis. 5. History of deep vein thrombosis. Patient had been on Eliquis. Will continue to follow. Further plans to be made as needed. Patient was also seen by Dr. Shaikh. Dictated by NAYELY Holden for Jose Alejandro Shaikh MD cc: NAYELY Ramírez MD Roger H. Moss Jr, MD
[2019-03-19] MEDS: D5 1/2 NS + KCL 10 MEQ 1,000 ML IV SCH ×3 (04:37→14:00)
[2019-03-19] MEDS: OFIRMEV 1000 MG/ISOTONIC SOLN 1,000 MG/100 ML BOTTLE IV SCH ×2 (05:01→12:27)
[2019-03-19 06:57] LABS: BASO# 0.01 X1000 (0.0-0.2); BASO% 0.1 % (0.0-0.8); EOS# 0.13 X1000 (0.0-0.7); EOS% 0.7 % (0.0-10.0); HEMATOCRIT 32.3 % (42.0-52.0); HEMOGLOBIN 10.8 g/dL (14.0-18.0); IMM GRAN# 0.04 X1000 (0.0-0.04); IMM GRAN% 0.2 % (0.0-0.5); LYMPH# 1.59 X1000 (1.2-3.4); LYMPH% 9.1 % (20.5-51.1); MCH 25.9 PG (27-31); MCHC 33.4 g/dL (33-37); MCV 77.5 FL (81-99); MONO# 0.76 X1000 (0.11-0.59); MONO% 4.4 % (1.7-9.3); NEUT# 14.89 X1000 (1.4-6.5); NEUT% 85.5 % (42.2-75.2); PLT 261 X1000 (130-400); RBC 4.17 XMIL (4.7-6.1); RDW 17.2 % (11.5-14.5); WBC 17.42 X1000 (4.8-10.8)
[2019-03-19 07:00] LABS: AGAP 8; BUN 22 mg/dL (8-22); CALCIUM 7.7 mg/dL (8.8-10.2); CHLORIDE 105 mmol/L (98-107); COSMO 265; CREATININE 1.1 mg/dL (0.7-1.2); ESTIMATED GFR > 60; GLUCOSE 111 mg/dL (70-104); POTASSIUM 3.6 mmol/L (3.5-5.1); SODIUM 130 mmol/L (136-145); TCO2 17 mmol/L (25-35)
[2019-03-19] MEDS: FLOMAX PO SCH ×2 (09:20→20:03)
[2019-03-19] MEDS: LEVAQUIN 500 MG/D5W 500 MG/100 ML IVPB IV SCH (10:08)
[2019-03-19] MEDS: ENTEREG PO SCH ×2 (10:09→20:03)
--- NOTE | 2019-03-19 13:36 | GENERAL SURGERY PROGRESS NOTE ---
DATE: 03/19/2019 Mr. Kaiser is afebrile. Heart rate 66, blood pressure 106/63. His NG output is down to less than 100 mL. He has been passing flatus. White count is 17,000, hemoglobin 10.8. BUN 22, creatinine 1.1. Plan will be to remove his NG tube. We will start him on clear liquids. He needs to get out of bed. We will transfer him up to regular room if okay with Dr. Vasquez. cc: MD Chris Bruno Jr, MD
--- NOTE | 2019-03-19 16:00 | GASTROENTEROLOGY PROGRESS NOTE ---
DATE: 03/19/2019 SUBJECTIVE: Patient is awake and alert. His is at the bedside. He is in no acute distress. He has had decreased output from his NG tube which is currently at low intermittent suction. He is passing air. He has not had a bowel movement today. OBJECTIVE: Vital Signs: Temperature 98.4 degrees, pulse 61, respirations 17, blood pressure 101/57. General: Patient is awake and in no acute distress. Abdomen: With dressing intact. He has hypoactive bowel sounds, mild tenderness with palpation. LABORATORY: Hematology. WBC 17.42, hemoglobin 10.8, hematocrit 32.3, MCV 77.5, platelets 261,000. Chemistry, sodium 130, potassium 3.6, chloride 105, CO2 17, BUN 22, creatinine 1.1, glucose 111, calcium 7.7. ASSESSMENT AND PLAN: 1. Colonic obstruction related to mass in the hepatic flexure. Waiting on biopsy results. 2. Anemia stable. 3. Possible lesion in the prostate. 4. History of ulcerative colitis. 5. History of deep vein thrombosis. Patient had been on Eliquis. 6. Will continue to follow. Further plans to be made according to his progress. I believe he will have his NG tube removed and there are plans for him to be transferred to a regular floor. I have discussed this case with Dr. Shaikh. Dictated by NAYELY Holden for Jose Alejandro Shaikh MD cc: NAYELY Ramírez MD Roger H. Moss Jr, MD
--- NOTE | 2019-03-19 18:27 | PROGRESS NOTE ---
DATE: 03/19/2019 SUBJECTIVE: The patient has remained in the ICU through today. He has been somewhat drowsy with some use of Dilaudid, but arousable and has passed flatus. OBJECTIVE: Afebrile, pulse 66, respirations 12, blood pressure 107/63, O2 saturation room air 97%.CV: RRR. Lungs: Clear. Abdomen: Hypoactive bowel sounds are noted without particular distention. Extremities: No calf tenderness, cords or edema. Neuro: The patient moves all extremities well. No focal deficits appreciated. White count 17.4 up from 11.8 yesterday, hemoglobin 10.8, platelets 261,000. Sodium 130, potassium 3.6, chloride 105, CO2 is 17, BUN 22, creatinine 1.2, calcium 7.7 ASSESSMENT: 1. Postoperative day #2 status post right colectomy due to colonic mass, rule out carcinoma. 2. Anemia stabilized status post surgery and 4 units packed red blood cells transfused. 3. Coagulopathy associated with cirrhosis of the liver. 4. Pulmonary nodule. 5. Prostate gland nodule followed by Urology. 6. Ulcerative colitis . 7. History of deep vein thrombosis currently off anticoagulation due to anemia and gastrointestinal blood loss. 8. One of 2 blood cultures growing out Klebsiella. 9. Chronic renal insufficiency stable with creatinine in the low 1 range. PLAN: We had changed his Rocephin to Levaquin this morning for better coverage of Klebsiella should the 2nd culture grow that out. Dr. Brewer is removing his NG tube. Currently still has the Scherer catheter will leave that in place and he is being transferred out to the floor as recommended by Dr. Brewer. We will get him up in a chair and start physical therapy. Await pathology on the colon lesion. cc: MD Chris Downey Jr, MD
[2019-03-20] MEDS: D5 1/2 NS + KCL 10 MEQ 1,000 ML IV SCH ×2 (01:15→15:47)
[2019-03-20 07:17] LABS: BASO# 0.01 X1000 (0.0-0.2); BASO% 0.1 % (0.0-0.8); EOS# 0.17 X1000 (0.0-0.7); HEMATOCRIT 31.4 % (42.0-52.0); HEMOGLOBIN 10.3 g/dL (14.0-18.0); IMM GRAN# 0.05 X1000 (0.0-0.04); IMM GRAN% 0.3 % (0.0-0.5); LYMPH# 1.45 X1000 (1.2-3.4); LYMPH% 8.4 % (20.5-51.1); MCH 25.6 PG (27-31); MCHC 32.8 g/dL (33-37); MCV 77.9 FL (81-99); MONO# 0.62 X1000 (0.11-0.59); MONO% 3.6 % (1.7-9.3); MPV 9.1 FL (7.4-10.4); NEUT# 14.95 X1000 (1.4-6.5); NEUT% 86.6 % (42.2-75.2); PLT 275 X1000 (130-400); RBC 4.03 XMIL (4.7-6.1); RDW 17.5 % (11.5-14.5); WBC 17.25 X1000 (4.8-10.8)
[2019-03-20 07:33] LABS: AGAP 8; BUN 18 mg/dL (8-22); CALCIUM 7.8 mg/dL (8.8-10.2); CHLORIDE 107 mmol/L (98-107); COSMO 270; CREATININE 0.9 mg/dL (0.7-1.2); ESTIMATED GFR > 60; GLUCOSE 93 mg/dL (70-104); POTASSIUM 3.9 mmol/L (3.5-5.1); SODIUM 134 mmol/L (136-145); TCO2 19 mmol/L (25-35)
[2019-03-20] MEDS: FLOMAX PO SCH ×2 (08:24→21:14)
[2019-03-20] MEDS: LEVAQUIN 500 MG/D5W 500 MG/100 ML IVPB IV SCH (08:24)
[2019-03-20] MEDS: ENTEREG PO SCH ×2 (08:25→21:14)
--- NOTE | 2019-03-20 09:25 | PROGRESS NOTE ---
DATE: 03/20/2019 SUBJECTIVE: The patient is out on the surgical floor now. NG tube is out and Scherer catheter remains in place. He has had some confusion with the Dilaudid. No bowel movements. OBJECTIVE: Temperature -max 99.1 degrees, pulse 72, respirations 14, blood pressure 122/61, O2 saturation room air 99 to 100 percent. CV: Regular rate and rhythm without murmur. Lungs fairly clear, distant breath sounds. May be minimal crackle at the left lung base. This is questionable. Abdomen: Mild distention, very hypoactive bowel sounds. Extremities: No calf tenderness cords or edema. Neuro: Patient is confused, is alert. Alert and oriented x2. LABORATORY DATA: White count 17.2, hemoglobin 10.3, platelets 275,000. Sodium 134, potassium 3.9, chloride 107, CO2 of 19, BUN 18, creatinine 0.9, calcium 7.8, blood sugar 93. ASSESSMENT: 1. Postoperative day #3 status post right colectomy due to colonic mass, rule out carcinoma. 2. Anemia, stable after surgery and 4 units packed red blood cells transfused early in the hospitalization. 3. Coagulopathy associated with cirrhosis of the liver. 4. Idiopathic cirrhosis of the liver. 5. Pulmonary nodule. 6. Prostate gland nodule. 7. Ulcerative colitis. 8. History of deep venous thrombosis , currently off anticoagulation due to the gastrointestinal blood loss and coagulopathy. 9. One of two blood cultures positive for Klebsiella. 10. Chronic renal insufficiency, stable. PLAN: 1. Continue Levaquin. 2. Continue IVF as per Dr. Brewer. 3. We will leave the Scherer catheter in presently. 4. The patient is to be gotten up into a chair today. Nurse is working on that now. We will start physical therapy. 5. Awaiting pathology on the colon lesion. 6. We will add incentive spirometry and Xopenex nebulizer treatments. 7. Continue to monitor labs. cc: MD Chris Downey Jr, MD
[2019-03-20] MEDS: XOPENEX NEB INH SCH ×3 (09:37→21:00)
[2019-03-20] MEDS: NS NEB INH SCH ×2 (09:37→15:36)
--- NOTE | 2019-03-20 11:34 | GENERAL SURGERY PROGRESS NOTE ---
DATE: 03/20/2019 He is now 3 days after right colectomy for obstruction. His temperature is 99.1 degrees, heart rate 72, blood pressure 122/61. He has passed a little flatus. He has had some hiccuping as well. Intake 1880, output 800. His NG tube is now out. White count 17,000, hemoglobin 10.3, hematocrit 31. Sodium 134, carbon dioxide 19, BUN 18, creatinine 0.9. ASSESSMENT: His abdomen remains somewhat distended. His ileus has not resolve yet. He can take what p.o. intake he can tolerate, but I did not push it because of his ileus. We will continue with our current therapy. cc: MD Chris Bruno Jr, MD
--- NOTE | 2019-03-20 18:13 | GASTROENTEROLOGY PROGRESS NOTE ---
DATE: 03/20/2019 SUBJECTIVE: Patient is now on 4th floor. He has moved out of the ICU. His NG tube has been removed. He has tolerated a small amount of clear liquids. He does have some abdominal distention. Per 's report, he has not had a bowel movement yesterday or today. After surgery he had a small amount of liquid stool. He is passing gas. OBJECTIVE: Vital Signs: Temperature 99.2 degrees, pulse 81, respirations 16, blood pressure 111/63. General: Patient is away. He does have a little confusion. Patient's states she has noticed some confusion with pain medication. Abdomen: Slightly distended. He does have very hypoactive bowel sounds. Mild tenderness. LABORATORY: Hematology: WBC 17.25, hemoglobin 10.3, hematocrit 31.4, MCV 77.9, platelets 275,000. Chemistry: Sodium 134, potassium 3.9, chloride 107, CO2 19, BUN 18, creatinine 0.9, glucose 93. ASSESSMENT AND PLAN: 1. Status post right colectomy due to hepatic masses. Waiting on biopsy results. 2. Abdominal distention. Continue to monitor. He made need Dulcolax suppository if distention does not improve. He has been started on a clear liquid diet. Recommend he take small amounts. 3. History of ulcerative colitis. 4. History of deep vein thrombosis. Currently off of anticoagulation at present time. We will continue to follow and further plans will be made according to his progress. I have discussed this case with Dr. Shaikh. Dictated by NAYELY Holden for Jose Alejandro Shaikh MD cc: NAYELY Ramírez MD Roger H. Moss Jr, MD
[2019-03-21] MEDS: XOPENEX NEB INH SCH ×5 (03:10→22:50)
[2019-03-21 07:12] LABS: BASO# 0.01 X1000 (0.0-0.2); BASO% 0.1 % (0.0-0.8); EOS# 0.11 X1000 (0.0-0.7); EOS% 1.3 % (0.0-10.0); HEMATOCRIT 29.3 % (42.0-52.0); HEMOGLOBIN 9.7 g/dL (14.0-18.0); IMM GRAN# 0.02 X1000 (0.0-0.04); IMM GRAN% 0.2 % (0.0-0.5); LYMPH# 1.19 X1000 (1.2-3.4); LYMPH% 13.6 % (20.5-51.1); MCH 25.7 PG (27-31); MCHC 33.1 g/dL (33-37); MCV 77.5 FL (81-99); MONO# 0.51 X1000 (0.11-0.59); MONO% 5.8 % (1.7-9.3); MPV 9.1 FL (7.4-10.4); NEUT# 6.89 X1000 (1.4-6.5); PLT 225 X1000 (130-400); RBC 3.78 XMIL (4.7-6.1); RDW 17.8 % (11.5-14.5); WBC 8.73 X1000 (4.8-10.8)
[2019-03-21 07:36] LABS: AGAP 10; BUN 15 mg/dL (8-22); CALCIUM 7.8 mg/dL (8.8-10.2); CHLORIDE 104 mmol/L (98-107); COSMO 262; ESTIMATED GFR > 60; GLUCOSE 107 mg/dL (70-104); POTASSIUM 3.7 mmol/L (3.5-5.1); SODIUM 130 mmol/L (136-145); TCO2 16 mmol/L (25-35)
[2019-03-21] MEDS: D5 1/2 NS + KCL 10 MEQ 1,000 ML IV SCH ×2 (08:50→15:46)
[2019-03-21] MEDS: NS NEB INH SCH ×2 (09:05→16:38)
--- NOTE | 2019-03-21 09:13 | Diag Imaging Result Doc PS360 ---
EXAM: SHOULDER-LEFT 03/21/2019 HISTORY: lt shoulder pain TECHNIQUE: Left shoulder two views COMMENT: There is no evidence of fracture dislocation or periosteal reaction. IMPRESSION: No acute bony abnormality. Electronically signed by Robin Milligan 03/21/2019 9:11 AM
--- NOTE | 2019-03-21 09:13 | PROGRESS NOTE ---
DATE: 03/21/2019 SUBJECTIVE: Patient overall improving. He is more alert today and not confused at all. Had 2 bowel movements during the night, one small and one moderate. He said he ate some breakfast this morning. He had a flat abdomen until he ate this morning. The patient complains of some left shoulder pain the past 2 or 3 days, feels like when they were moving him around in the operating room he may have felt some pain at that point when moving from the stretches to the table, and he has some ongoing difficulties. OBJECTIVE: Vital signs: T-max 99.3, pulse 85, respirations 18, blood pressure 126/65. General: Frail-appearing white male, more alert, attentive, no confusion. CV: RRR without murmur. Lungs: Clear. Abdomen: Mild distention, active bowel sounds noted today, soft. Extremities: No calf tenderness, cords, or edema. FROM left shoulder with mild diffuse pain about the left shoulder. Neurologic: Cranial nerves II through XII are intact. White count down to 8.7, hemoglobin 9.7, platelets 225. Sodium 130, potassium 3.7, chloride 104, CO2 16, BUN 15, creatinine 1.0, blood sugar 107, calcium 7.8. Blood cultures 1 of 2 grew out Klebsiella, the other is negative after 5 days. ASSESSMENT: 1. Postoperative day number 4 status post right colectomy due to colonic mass, pathology still pending on the specimen. Postoperative ileus, improved. 2. Anemia, stable. 3. 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 4. Idiopathic cirrhosis of the liver. Ruled out related to number 1. 5. Left shoulder pain, musculoskeletal. 6. Pulmonary nodule. 7. Prostate nodule. 8. Ulcerative colitis. 9. History of deep venous thrombosis currently off anticoagulation due to gastrointestinal bleed and coagulopathy. 10.1 of 2 blood cultures positive for Klebsiella. 11.Chronic renal insufficiency. PLAN: Continue IV Levaquin and IV fluids. Check left shoulder x-ray. Discontinue Scherer catheter today. Continue physical therapy and have the patient up in a chair. He is eating some now. Continue incentive spirometry and Xopenex nebulizer treatments. Await pathology on the colonic specimen. cc: MD Chris Downey Jr, MD
[2019-03-21] MEDS: FLOMAX PO SCH ×2 (09:41→20:06)
[2019-03-21] MEDS: ENTEREG PO SCH ×2 (09:41→20:07)
[2019-03-21] MEDS: LEVAQUIN 500 MG/D5W 500 MG/100 ML IVPB IV SCH (09:41)
[2019-03-21] MEDS ORDERED: D5 1/2 NS + KCL 10 MEQ 1,000 ML IV SCH (17:45)
[2019-03-21] MEDS: ELIQUIS PO SCH (20:07)
--- NOTE | 2019-03-21 21:43 | GENERAL SURGERY PROGRESS NOTE ---
DATE: 03/21/2019 Mr. Kaiser started passing liquid stool last night. He has passed a lot of flatus today. His abdomen is soft. His white count is down to 8000. He is tolerating liquids satisfactorily. The plan will be to advance his diet to full liquids tomorrow and then onto solids after that. cc: MD Chris Bruno Jr, MD
[2019-03-21] MEDS: NORCO-7.5 PO PRN (22:44)
[2019-03-22] MEDS: NORCO-7.5 PO PRN ×3 (02:23→23:22)
[2019-03-22] MEDS: XOPENEX NEB INH SCH ×4 (05:49→22:56)
[2019-03-22] MEDS: FLOMAX PO SCH ×2 (08:49→21:43)
[2019-03-22] MEDS: LEVAQUIN 500 MG/D5W 500 MG/100 ML IVPB IV SCH (08:50)
[2019-03-22] MEDS: ENTEREG PO SCH ×2 (08:50→21:43)
[2019-03-22] MEDS: ELIQUIS PO SCH ×2 (08:50→21:43)
--- NOTE | 2019-03-22 09:28 | PROGRESS NOTE ---
DATE: 03/22/2019 SUBJECTIVE: The patient has had adequate pain control with a half [place]. According to his he has been clear on that medication. He has still been passing gas and also having some loose bowel movements. He has had some difficulty had to be straight cathed once since having the Scherer catheter removed. He does have a history of BPH and has been followed in the past with urinary retention by Urology, Dr. Guevara. OBJECTIVE: Afebrile, pulse 92, respirations 16, blood pressure 124/66, O2 saturation on room air 98-100%.CV: Regular rate and rhythm without murmur. Lungs: Clear. Shallow respirations noted. Abdomen: Mild distention. Active bowel sounds. Extremities: No calf tenderness, cords or edema. Neurologic: Cranial nerves are intact. He moves all extremities well. Follows commands. No focal deficits. LABORATORY DATA: Labs not done today. ASSESSMENT: 1. Postoperative day #5 status post right colectomy due to colonic mass. 2. Anemia stable. 3. 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 4. Idiopathic cirrhosis of the liver. 5. Left shoulder pain with negative x-ray. 6. Prostatism with prostate nodule per CT scan. 7. Ulcerative colitis. 8. Pulmonary nodule. 9. History of deep venous thrombosis now resuming anticoagulation last evening as I spoke with Dr. Brewer and he feels that is safe at this point. Will watching for any GI blood loss. 10. One of two blood cultures positive for Klebsiella with normal white count on Levaquin. 11. Chronic renal insufficiency, stable on low-dose IV fluids, now transitioning over from clear liquids to full liquids. PLAN: 1. Advancement of diet as per Dr. Brewer. 2. Continue IV Levaquin. 3. May have to replace Scherer catheter. 4. Continue Flomax b.i.d. 5. Awaiting path on the colonic mass. 6. Repeat labs to include CBC, BMP in the morning. 7. Physical therapy continues and patient has been sitting up in a chair daily. cc: MD Chris Downey Jr, MD
[2019-03-22] MEDS ORDERED: DULCOLAX PR ONE (09:33)
--- NOTE | 2019-03-22 13:47 | GENERAL SURGERY PROGRESS NOTE ---
DATE: 03/22/2019 Mr. Kaiser was taking his liquids satisfactorily, in small amounts anyway. No bowel movement since yesterday. He has required in and out catheterization after removal of his Scherer. This morning, he still remains distended somewhat. No new laboratory data today. PLAN: The plan will be to give him Dulcolax suppository today. His is going to get him up and walk him more today, and we will check his bowel gas pattern and see about possibly advancing his diet tomorrow. Dr. Aelx will be covering the weekend. His path remains pending. cc: MD Chris Bruno Jr, MD
--- NOTE | 2019-03-22 17:11 | GASTROENTEROLOGY PROGRESS NOTE ---
DATE: 03/22/2019 SUBJECTIVE: Patient states he is feeling a little better. He is working with Physical Therapy. He has had some liquid stool. He is passing gas. OBJECTIVE: Vital Signs: Temperature 98.0 degrees, pulse 92, respirations 16, blood pressure 124/66. Generally, patient is awake and alert. No acute distress. His is at the bedside. Abdomen is soft with mild distention noted. Abdominal dressing intact. Hypoactive bowel sounds. DIAGNOSTIC STUDIES: Hematology: WBC 8.73, hemoglobin 9.7, hematocrit 29.3, MCV 77.5, platelets 225,000. Chemistry: Sodium 130, potassium 3.7, chloride 104, CO2 of 16, BUN 15, creatinine 1.0, glucose 107. ASSESSMENT AND PLAN: 1. Recent right colectomy due to colon mass. Pathology pending. 2. History of ulcerative colitis. 3. Mild anemia. Continue to follow hemoglobin and hematocrit. We will continue to follow and be available as needed. I have discussed this case with Dr. Shaikh. Dictated by NAYELY Holden for Jose Alejandro Shaikh MD cc: NAYELY Ramírez MD Roger H. Moss Jr, MD
[2019-03-23] MEDS: NORCO-7.5 PO PRN ×2 (03:15→19:21)
[2019-03-23] MEDS: D5 1/2 NS + KCL 10 MEQ 1,000 ML IV SCH (03:15)
[2019-03-23] MEDS: XOPENEX NEB INH SCH ×4 (03:55→22:11)
[2019-03-23 06:44] LABS: EOS# 0.16 X1000 (0.0-0.7); EOS% 2.6 % (0.0-10.0); HEMATOCRIT 27.7 % (42.0-52.0); HEMOGLOBIN 9.1 g/dL (14.0-18.0); IMM GRAN# 0.04 X1000 (0.0-0.04); IMM GRAN% 0.6 % (0.0-0.5); LYMPH# 1.09 X1000 (1.2-3.4); LYMPH% 17.6 % (20.5-51.1); MCH 25.6 PG (27-31); MCHC 32.9 g/dL (33-37); MCV 77.8 FL (81-99); MONO# 0.54 X1000 (0.11-0.59); MONO% 8.7 % (1.7-9.3); MPV 8.9 FL (7.4-10.4); NEUT# 4.35 X1000 (1.4-6.5); NEUT% 70.5 % (42.2-75.2); PLT 233 X1000 (130-400); RBC 3.56 XMIL (4.7-6.1); WBC 6.18 X1000 (4.8-10.8)
[2019-03-23 07:11] LABS: AGAP 9; BUN 10 mg/dL (8-22); CHLORIDE 104 mmol/L (98-107); COSMO 261; CREATININE 0.8 mg/dL (0.7-1.2); ESTIMATED GFR > 60; GLUCOSE 93 mg/dL (70-104); SODIUM 131 mmol/L (136-145); TCO2 18 mmol/L (25-35)
[2019-03-23] MEDS: FLOMAX PO SCH ×3 (08:02→23:16)
[2019-03-23] MEDS: ELIQUIS PO SCH ×3 (08:02→23:15)
[2019-03-23] MEDS: ENTEREG PO SCH ×3 (08:02→23:16)
[2019-03-23] MEDS: LEVAQUIN 500 MG/D5W 500 MG/100 ML IVPB IV SCH (08:02)
--- NOTE | 2019-03-23 09:56 | Diag Imaging Result Doc PS360 ---
EXAM: FLAT/UPRIGHT ABD/1 VIEW CHEST INDICATION: persistent abdominal distention TECHNIQUE: 3 views COMPARISON: 03/16/2019 FINDINGS: There are anterior midline skin darnell indicating an interval laparotomy. There has been interval marked improvement of the small bowel distention seen on the previous study. However, there is moderate gaseous distention of the stomach. There is also a collection of gas underlying the right hemidiaphragm. It may be in a loop of colon. However, extraluminal gas cannot be excluded. If so, the amount of gas is somewhat excessive for simple postsurgical gas, especially if the surgery was performed over 24 hours ago. A lateral decubitus radiograph would probably determine if this is truly extraluminal gas. Inspiration is suboptimal. There are mild linear densities at the lung bases that probably represents subsegmental atelectasis. There is no discrete pleural fluid collection or pneumothorax. The cardiomediastinal silhouette and central vasculature are grossly unremarkable. IMPRESSION: 1.Interval laparotomy with marked improvement of atelectasis distention of small bowel. 2.Moderate gaseous distention of the stomach. 3.A fair amount of gas underlying the right hemidiaphragm. Extraluminal gas cannot be excluded. Please see the above discussion. 4.Suggestion of bibasilar subsegmental atelectasis. Electronically signed by Aj Kent 03/23/2019 9:53 AM
--- NOTE | 2019-03-23 10:16 | PROGRESS NOTE ---
DATE: 03/23/2019 SUBJECTIVE: Mr. Gregory Kaiser is now postop day 6 from an open right hemicolectomy for obstructing cancer. He is malnourished, very slim and weak still. His abdomen remains distended, although he has had some bowel activity. It appears that he still has a lot of gas in his intestines. He is able to eat and drink a small amount. His midline wound seems to be healing well. His IV has infiltrated. OBJECTIVE: Heart rate is 79, blood pressure 115/66, O2 saturation 97%, he is afebrile. He has had some liquid bowel movements. He has been on IV Levaquin, but his white blood cell count is now normal, hematocrit is 28%. BUN and creatinine are 10 and 0.8. DIAGNOSTIC DATA: Flat and upright abdominal film shows a distended stomach. PLAN: We will have him try to move around. Continue having him try to eat a diet. We may have to restart his IV to maintain his hydration. cc: MD Chris Guzman Jr, MD
--- NOTE | 2019-03-23 12:36 | PROGRESS NOTE ---
DATE: 03/23/2019 SUBJECTIVE: Patient is overall stable. He is still stooling. He is eating very little, but he was able to get down some grits this morning, a few bites. Drinking some Ensure clear as well. OBJECTIVE: Vitals: Afebrile, pulse 79, respirations 16, blood pressure 115/66, O2 saturation on room air 97 to 99%. CV: RRR. No murmur. Lungs: Clear. Abdomen: Mild distention consistent with his liver disease. Positive bowel sounds noted. Extremities: No calf tenderness, cords, or edema. Frail appearing. Neurologic: Nonfocal. Cranial nerves intact. DIAGNOSTIC DATA: Sodium 131, potassium 4.0, chloride 104, CO2 18, BUN 10, creatinine 0.8, blood sugar 93. White count 6.18, hemoglobin 9.1, platelets 233,000. Colon specimen path still pending. Abdominal x-ray reveals moderate distention of the stomach, bibasilar subsegmental atelectasis. ASSESSMENT: 1. Postop day #6 status post right colectomy due to colonic mass. 2. Anemia, fairly stable. 3. 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 4. Idiopathic cirrhosis of the liver. 5. Left shoulder pain, improved. 6. Prostatism, with prostate nodule per CT, followed by Dr. Guevara outpatient. The patient is able to void without great difficulty with the catheter out. 7. Ulcerative colitis. 8. Pulmonary nodule. 9. History of DVT, now back on his anticoagulation. 10. One of 2 blood cultures positive for Klebsiella. 11. Chronic renal insufficiency, stable. PLAN: Dr. Alex is resuming some low-dose IV fluids. We have encouraged the patient to continue to eat as much as possible, to try to continue with physical therapy. We will monitor his labs day after tomorrow. Continue b.i.d. Flomax, continue Eliquis, and continue Levaquin. cc: MD Chris Downey Jr, MD
[2019-03-24] MEDS: XOPENEX NEB INH SCH ×4 (04:01→21:21)
[2019-03-24] MEDS: LEVAQUIN 500 MG/D5W 500 MG/100 ML IVPB IV SCH (08:16)
[2019-03-24] MEDS: FLOMAX PO SCH ×2 (08:17→20:09)
[2019-03-24] MEDS: ENTEREG PO SCH ×2 (08:17→20:09)
[2019-03-24] MEDS: ELIQUIS PO SCH ×2 (08:17→20:09)
--- NOTE | 2019-03-24 09:01 | PROGRESS NOTE ---
DATE: 03/24/2019 SUBJECTIVE: Mr. Kaiser is now postop day 7 from an open right hemicolectomy for obstructing colon cancer. His abdomen continues to be distended. An abdominal film yesterday showed dilated stomach. He does have hiccups except when he sleeps. He remains uncomfortable because of his abdominal distention. He has taken some of his diet but not much. He remains on IV fluids for hydration. He does not want an NG tube. OBJECTIVE: Vital Signs: His heart rate is 83, blood pressure 124/68, O2 saturation 98%. He is afebrile. Abdomen: He has had some bowel movements and flatus but his abdomen remains distended. I spoke with his family at the bedside and we will try to avoid an NG tube at this time but if he becomes nauseated or vomiting where he gets sick of his hiccups, will have to place an NG tube. cc: MD Chris Guzman Jr, MD
[2019-03-24] MEDS: D5 1/2 NS + KCL 10 MEQ 1,000 ML IV SCH (09:09)
[2019-03-24] MEDS: NORCO-7.5 PO PRN ×2 (09:54→20:09)
--- NOTE | 2019-03-24 10:49 | PROGRESS NOTE ---
DATE: 03/24/2019 SUBJECTIVE: The patient is a little more alert and bright eyed today. He is having some hiccups, and only taking in some bites. He is drinking some Ensure Clear. He had a bowel movement at least x1 in the past 24 hours. OBJECTIVE: Vital Signs: Afebrile, pulse 83, respirations 16, blood pressure 124/68, O2 saturation on room air is 98%. CV: RRR. Lungs: Clear. Abdomen: Showing some [id number] distention. Active bowel sounds. Extremities: There is 2+ edema in the ankles, right greater than left. None on the legs. No calf tenderness or cords. Neurologic: Cranial nerves are intact. He moves all extremities well. No focal deficits. LABORATORY DATA: Labs not done today. ASSESSMENT: 1. Postoperative day #7, status post right colectomy due to colonic mass. Pathology still pending. 2. Anemia, stable. 3. 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 4. Idiopathic cirrhosis of the liver. 5. Prostatism, improved, and Scherer catheter out with possible prostate nodule. Patient followed by Dr. Guevara outpatient. 6. Ulcerative colitis. 7. Pulmonary nodule. 8. History of deep venous thrombosis, now back on his anticoagulation of Eliquis. 9. One of two blood cultures positive for Klebsiella, stable on Levaquin. 10. Chronic renal insufficiency, stable. PLAN: He is receiving some low-dose IV fluids. The patient has not wanted to put back in an NG tube. He is still wanting to try some Ensure and try to eat a few bites of his meals. Will continue Levaquin, Flomax, Eliquis, and supportive measures. Physical Therapy encouraged his to put back on the support hose as they had left these off the last couple of days, and that is when he seemed to get some fluid in his ankles. cc: MD Chris Downey Jr, MD
[2019-03-25] MEDS: XOPENEX NEB INH SCH ×4 (04:06→21:20)
[2019-03-25] MEDS ORDERED: CETACAINE SPRAY TOP ONE (08:14)
--- NOTE | 2019-03-25 09:32 | Diag Imaging Result Doc PS360 ---
EXAM: CHEST-PORTABLE INDICATION: NG placement TECHNIQUE: One view COMPARISON: 03/23/2019 FINDINGS: The newly placed NG tube projects well below the diaphragm and is assumed to be in the lumen of the stomach in the expected position. The gaseous distention of the stomach seen on the previous study has improved significantly. No definite large volume free abdominal gas is identified given the limitations of a supine radiograph. Mild basilar linear densities most compatible with subsegmental atelectasis and more prominent on the right, is essentially stable. Cardiac silhouette is stable. IMPRESSION: Newly placed NG tube in the expected position as described. Electronically signed by Aj Kent 03/25/2019 9:29 AM
[2019-03-25] MEDS: LEVAQUIN 500 MG/D5W 500 MG/100 ML IVPB IV SCH (10:29)
[2019-03-25] MEDS: FLOMAX PO SCH ×2 (13:44→21:46)
--- NOTE | 2019-03-25 13:53 | GENERAL SURGERY PROGRESS NOTE ---
DATE: 03/25/2019 Mr. Kaiser is afebrile. Heart rate 80, blood pressure 117/63. He has a still a distended abdomen. X-ray showed a very distended stomach. He is passing some flatus. PLAN: Decompress his stomach today with an NG tube. I have discussed this with him and the necessity of that. We will repeat his x-ray after placing the NG tube. His pathology is still pending. cc: MD Chris Bruno Jr, MD
[2019-03-25] MEDS: ELIQUIS PO SCH (13:55)
--- NOTE | 2019-03-25 13:56 | PROGRESS NOTE ---
DATE: 03/25/2019 SUBJECTIVE: Patient had to have NG tube placed per Dr. Brewer this morning as he still was having prominent abdominal distention and bloating. He is tolerating the NG tube well so far, he is still stooling as well. OBJECTIVE: Afebrile. Pulse 80, respirations 16, blood pressure 117/63, O2 saturation 96 to 98% percent on room air. Weight 134.General: Chronically ill-appearing white male. CV: RRR. Lungs: Clear. Abdomen: Less distention is noted. Active bowel sounds. Extremities: 2+ right ankle edema, 1+ on the left. No lower extremity edema, however. No cords. Neurologic: Cranial nerves are intact. He moves all extremities well. No focal deficits. LABS: Not done this morning. Pathology specimen still pending from the colon mass removal. ASSESSMENT: 1. Postoperative day #8 status post right colectomy due to colonic mass pathology pending. 2. Anemia. 3. Coagulopathy secondary to cirrhosis of liver. 4. Idiopathic cirrhosis of liver. 5. Prostatism with possible prostate nodule, Scherer catheter out and doing well. 6. Ulcerative colitis. 7. Pulmonary nodule. 8. History of deep vein thrombosis stable on Eliquis. 9. Possible Klebsiella sepsis, 1of 2 blood cultures positive. 10. Chronic renal insufficiency, stable. PLAN: NG tube in place but will be clamped and he will take his oral medications with the NG tube clamped. He is on low-dose IV fluids. Physical therapy is working hard with the patient to try to improve his ambulation. Go ahead and start the process for home health care and home PT as he will need this and he declines rehab facility. cc: MD Chris Downey Jr, MD
[2019-03-25 14:42] LABS: BASO# 0.01 X1000 (0.0-0.2); BASO% 0.1 % (0.0-0.8); EOS# 0.16 X1000 (0.0-0.7); EOS% 1.8 % (0.0-10.0); HEMATOCRIT 28.4 % (42.0-52.0); HEMOGLOBIN 9.3 g/dL (14.0-18.0); IMM GRAN# 0.02 X1000 (0.0-0.04); IMM GRAN% 0.2 % (0.0-0.5); LYMPH# 0.96 X1000 (1.2-3.4); LYMPH% 10.7 % (20.5-51.1); MCH 25.5 PG (27-31); MCHC 32.7 g/dL (33-37); MONO# 0.39 X1000 (0.11-0.59); MONO% 4.3 % (1.7-9.3); MPV 8.6 FL (7.4-10.4); NEUT# 7.46 X1000 (1.4-6.5); NEUT% 82.9 % (42.2-75.2); PLT 263 X1000 (130-400); RBC 3.64 XMIL (4.7-6.1); RDW 18.7 % (11.5-14.5)
[2019-03-25 14:47] LABS: INR 1.52; PROTIME 19.4 Seconds (11.0-16.0)
[2019-03-25 14:48] LABS: PTT 48.8 Seconds (22.3-41.8)
[2019-03-25 15:05] LABS: AGAP 9; ALBUMIN 1.9 g/dL (3.5-5.0); BUN 10 mg/dL (8-22); CALCIUM 8.5 mg/dL (8.8-10.2); CHLORIDE 100 mmol/L (98-107); COSMO 262; CREATININE 0.7 mg/dL (0.7-1.2); ESTIMATED GFR > 60; GLUCOSE 100 mg/dL (70-104); POTASSIUM 4.1 mmol/L (3.5-5.1); SODIUM 131 mmol/L (136-145); TCO2 22 mmol/L (25-35); TOTAL PROTEIN 5.1 g/dL (6.3-8.3)
[2019-03-25 15:06] LABS: ALB/GLOB RATIO 0.6; ALKALINE PHOSPHATASE 90 U/L (32-122); GOT 22 U/L (10-34); GPT 13 U/L (10-44)
[2019-03-25] MEDS: NS NEB INH SCH (15:28)
[2019-03-25] MEDS: NORCO-7.5 PO PRN ×2 (16:00→21:46)
--- NOTE | 2019-03-25 20:55 | HEMO/ONC CONSULTATION ---
DATE: 03/25/2019 CHIEF COMPLAINT: We are being consulted for management of colon cancer. HISTORY OF PRESENT ILLNESS: This is a 78-year-old white male who presented to the ER with abdominal pain and distention on 03/15/2019. He has a history of ulcerative colitis, liver disease, and non-alcoholic cirrhosis. He was subsequently admitted and hospital imaging showed evidence of high-grade obstruction of the small bowel and colon to the level of hepatic flexure. He underwent laparotomy and colon resection.The pathology revealed moderately differentiated invasive adenocarcinoma, colon cancer T3,N1. PAST MEDICAL HISTORY: Ulcerative colitis, nonalcoholic cirrhosis, kidney disease, DVT and enlarged prostate. PAST SURGICAL HISTORY: Cholecystectomy, basal cell carcinoma of the nose and ascites procedure. ALLERGIES: Gluten, lactose, sulfa drugs, trimethoprim. MEDICATIONS: Eliquis, spironolactone, potassium chloride, allopurinol, tamsulosin, Delzicol, Klonopin, and multivitamins. SOCIAL HISTORY: He is a nonsmoker and nondrinker. Denies illicit drug use. REVIEW OF SYSTEMS: Positive for weight loss, fatigue, ankle swelling, abdominal pain and distention, nocturia. PHYSICAL EXAM: Vital Signs: Temperature 98 degrees, pulse rate 90, respiratory rate 18, blood pressure 110/68, O2 saturation 95% on room air. He is in 6/10 abdominal pain. General: He is a chronically ill-appearing male. Respiratory: Lungs are clear to auscultation. Cardiovascular: S1, S2 noted. Regular rate and rhythm. Gastrointestinal: Abdomen is distended. NG tube in place. Neurological: Moves all extremities well. No focal deficits. Extremities: 2+ right ankle edema, 1+ left lower extremity edema. LABORATORY: WBC 9.0, hemoglobin 9.3, hematocrit 28.4, platelet count 263,000, PT 19.4, INR 1.52, PTT 48.8. Creatinine 0.7, sodium 131, potassium 4.1. RADIOLOGY: This morning's chest x-ray shows newly placed NG tube in the expected position, gaseous distension of the stomach that was seen on previous study has improved significantly. Subsegmental atelectasis more prominent on the right. ASSESSMENT: 1. Postoperative date 8 status post right colectomy due to colonic mass. 2. Colon cancer T3N1. 3. Anemia. 4. 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 5. Idiopathic cirrhosis of the liver. 6. Ulcerative colitis. 7. History of deep vein thrombosis stable on Eliquis. 8. Possible Klebsiella sepsis, 1 of 2 blood cultures positive. PLAN: It was noted the patient's NG tube suctioned about 600 mL of maroon colored fluid, this was tested for occult blood and was found negative. We will continue to monitor the patient. He is known to us in the clinic and when he is able to return home we will bring him into the clinic to begin treatment for colon cancer. Dictated by NAYELY Mcfarlane for Kenneth Banks MD Patient seen and examined. As above. Patient presented with colonic obstruction and underwent laparotomy with colon resection. Pathology reveals T3 N1 colon adenocarcinoma. Patient is weak and emaciated. He is still recuperating from surgery. Continue current management per Dr. Brewer. He has a history of DVT and is currently on Eliquis. He also has cirrhosis of the liver. I will continue to follow him along. Thank you. Kenneth Banks M.D. cc: MD Chris Harry Jr, MD MTDD
[2019-03-25] MEDS: SODIUM CHLORIDE 0.9% INJ SCH (21:47)
[2019-03-25] MEDS: PROTONIX IV SCH (21:47)
[2019-03-26] MEDS: NORCO-7.5 PO PRN ×5 (03:06→20:18)
[2019-03-26] MEDS: XOPENEX NEB INH SCH ×5 (03:39→22:57)
[2019-03-26] MEDS: D5 1/2 NS + KCL 10 MEQ 1,000 ML IV SCH ×2 (05:15→07:37)
[2019-03-26 06:24] LABS: BASO# 0.01 X1000 (0.0-0.2); BASO% 0.1 % (0.0-0.8); EOS# 0.08 X1000 (0.0-0.7); EOS% 0.8 % (0.0-10.0); HEMATOCRIT 25.9 % (42.0-52.0); HEMOGLOBIN 8.5 g/dL (14.0-18.0); LYMPH# 1.01 X1000 (1.2-3.4); LYMPH% 10.6 % (20.5-51.1); MCH 26.1 PG (27-31); MCHC 32.8 g/dL (33-37); MCV 79.4 FL (81-99); MONO# 0.48 X1000 (0.11-0.59); MPV 8.8 FL (7.4-10.4); NEUT# 7.98 X1000 (1.4-6.5); NEUT% 83.5 % (42.2-75.2); PLT 259 X1000 (130-400); RBC 3.26 XMIL (4.7-6.1); RDW 18.7 % (11.5-14.5); WBC 9.56 X1000 (4.8-10.8)
[2019-03-26 06:40] LABS: AGAP 8; BUN 11 mg/dL (8-22); CALCIUM 8.3 mg/dL (8.8-10.2); CHLORIDE 102 mmol/L (98-107); COSMO 264; CREATININE 0.8 mg/dL (0.7-1.2); ESTIMATED GFR > 60; GLUCOSE 97 mg/dL (70-104); POTASSIUM 4.1 mmol/L (3.5-5.1); SODIUM 132 mmol/L (136-145); TCO2 22 mmol/L (25-35)
[2019-03-26] MEDS: FLOMAX PO SCH ×3 (07:36→20:19)
[2019-03-26] MEDS: LEVAQUIN 500 MG/D5W 500 MG/100 ML IVPB IV SCH (07:59)
--- NOTE | 2019-03-26 09:31 | HEMO/ONC PROGRESS NOTE ---
DATE: 03/26/2019 SUBJECTIVE: Mr. Kaiser is lying in bed, sitting up, NG tube in place, it is currently clamped. Radiology transport is taking him down for a morning chest x-ray. He states he feels fairly well. He denies any pain. OBJECTIVE: Vital Signs: Temperature 98.8 degrees, pulse rate 85, respiratory rate 18, blood pressure 124/68, O2 saturation 98% on room air. Pain level 2/10 abdominal pain. PHYSICAL EXAMINATION: General: Chronically ill-appearing white male in no acute distress. Respiratory: Lungs are clear to auscultation. No increased respiratory effort. Cardiovascular: S1, S2 noted. Regular rate and rhythm. Abdomen: It is soft and non distended. There is tenderness to palpation in the upper quadrant. Active bowel sounds. Neurological: Patient is alert, awake, and oriented x3. Moves all his extremities. No focal deficits noted. LABORATORY DATA: WBC 9.56, hemoglobin 8.5, hematocrit 25.9, platelet count 259,000. Sodium 132, potassium 4.1, creatinine 0.8, calcium 8.3. IMAGING: Radiology is pending this morning. ASSESSMENT: 1. Status post right colectomy due to colonic mass. 2. Colon cancer, T3 N1, stage III. 3. Anemia. 4. 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 5. Idiopathic cirrhosis of the liver. 6. Ulcerative colitis. 7. History of deep venous thrombosis, stable on Eliquis. 8. Possible Klebsiella sepsis, 1 of 2 blood cultures positive. PLAN: We will continue to follow. We will evaluate his anemia. Continue eliquis for his DVT history. Dictated by NAYELY Mcfarlane for Kenneth Banks MD cc: MD Chris Harry Jr, MD MTDD
[2019-03-26] MEDS ORDERED: CLINIMIX E 4.25%-5% SOLUTION 1,000 ML IV SCH (12:00)
[2019-03-26 12:52] LABS: RETIC% 1.47 % (0.8-2.1); RETIC-HE 25.3 PG (28.2-36.6)
[2019-03-26 13:07] LABS: IRON SATURATION 10 %; TIBC 153 ug/dL; TOTAL IRON 16 ug/dL (53-167); UNBOUND IRON 137 ug/dL (112-346)
--- NOTE | 2019-03-26 14:01 | PROGRESS NOTE ---
DATE: 03/26/2019 SUBJECTIVE: The patient remains stable. NG tube is in place and being clamped part of the time. He has had more normal-appearing gastric juices per output. Seems a little more alert and attentive today than yesterday. OBJECTIVE: Vital signs: Afebrile, pulse 92, respirations 18, blood pressure 110/65, O2 saturation room air 99%. Cardiovascular: RRR without murmur. Lungs: Clear. Abdomen: Softer, active bowel sounds. NG tube in place. Extremities: 1-2+ right ankle edema, 1+ left ankle edema, no edema on up in the leg however. No calf tenderness or cord. Neurologic: Cranial nerves intact. Nonfocal. White count 9.5, hemoglobin 8.5 with a slow gradual trend downward, platelets 259. Sodium 132, potassium 4.1, chloride 102, CO2 22, BUN 11, creatinine 0.8, calcium 8.3. Iron 16, TIBC 153, percent saturation 10, unsaturated iron binding 137, ferritin 319, folate 7.0. ASSESSMENT: 1. Postoperative day number 9 status post right colectomy due to colonic mass found to be adenocarcinoma of the colon per pathology. 2. T3 N1 colon cancer. 3. Iron-deficiency and folic acid deficiency anemia. 4. 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 5. Idiopathic cirrhosis of the liver. 6. Ulcerative colitis. 7. Pulmonary nodule. 8. Prostatism with possible prostate nodule followed by Dr. Guevara. 9. History of deep venous thrombosis 1 year ago on chronic Eliquis treatment now currently off of that per Dr. Banks, as his anemia is slightly worsening. 10.One of two blood cultures positive for Klebsiella with the patient stable on Levaquin now for about 8-9 days. 11.Chronic renal insufficiency currently improved. PLAN: He is on amino acids per Dr. Brewer, NG tube in place, continue to monitor his hemoglobin closely, placed him on IV PPI for prevention of peptic ulcer disease. Eliquis as per Hematology/Oncology. cc: MD Chris Downey Jr, MD
--- NOTE | 2019-03-26 15:55 | GENERAL SURGERY PROGRESS NOTE ---
DATE: 03/26/2019 Mr. Kaiser is now 9 days after his right colectomy for obstructive cancer. He is afebrile, heart rate 92, blood pressure 110/65. Intake 1674, output was 800. However, his urine output was not recorded. His white count is 9600, hemoglobin 8.5, hematocrit 25. Chemistry is okay. His x-ray shows a decompressed stomach and really shows no abdominal or intestinal distention. His pathology report is back and shows that he had invasive cancer with 1/20 nodes positive. PLAN: Now will be to switch him to Clinimix for some nourishment. I will start intermittently clamping his NG tube in preparation for removing it when indicated. cc: MD Chris Bruno Jr, MD
[2019-03-26] MEDS: PROTONIX IV SCH (20:19)
[2019-03-26] MEDS: SODIUM CHLORIDE 0.9% INJ SCH (20:19)
[2019-03-27] MEDS: NORCO-7.5 PO PRN ×2 (02:06→09:15)
[2019-03-27] MEDS: XOPENEX NEB INH SCH ×4 (03:42→21:42)
[2019-03-27 07:03] LABS: BASO# 0.01 X1000 (0.0-0.2); BASO% 0.1 % (0.0-0.8); EOS# 0.02 X1000 (0.0-0.7); EOS% 0.2 % (0.0-10.0); HEMOGLOBIN 8.5 g/dL (14.0-18.0); IMM GRAN# 0.02 X1000 (0.0-0.04); IMM GRAN% 0.2 % (0.0-0.5); LYMPH# 0.67 X1000 (1.2-3.4); LYMPH% 6.4 % (20.5-51.1); MCH 25.6 PG (27-31); MCHC 32.7 g/dL (33-37); MCV 78.3 FL (81-99); MONO# 0.45 X1000 (0.11-0.59); MONO% 4.3 % (1.7-9.3); MPV 8.8 FL (7.4-10.4); NEUT# 9.32 X1000 (1.4-6.5); NEUT% 88.8 % (42.2-75.2); PLT 293 X1000 (130-400); RBC 3.32 XMIL (4.7-6.1); RDW 18.9 % (11.5-14.5); WBC 10.49 X1000 (4.8-10.8)
[2019-03-27 07:04] LABS: AGAP 8; BUN 16 mg/dL (8-22); CALCIUM 8.1 mg/dL (8.8-10.2); CHLORIDE 102 mmol/L (98-107); COSMO 272; CREATININE 0.8 mg/dL (0.7-1.2); ESTIMATED GFR > 60; GLUCOSE 112 mg/dL (70-104); POTASSIUM 3.9 mmol/L (3.5-5.1); SODIUM 135 mmol/L (136-145); TCO2 25 mmol/L (25-35)
[2019-03-27 07:40] LABS: BANDS 2 % (0-1); HYPOCHROM 1+; LYMPHS 4 % (21-51); SEGS 94 % (42-75)
--- NOTE | 2019-03-27 07:47 | GENERAL SURGERY PROGRESS NOTE ---
DATE: 03/27/2019 SUBJECTIVE: Mr. Kaiser is now 10 days after his operative intervention. Today, he is afebrile, heart rate 88, blood pressure 111/64. His bowels have moved. His abdomen is softer today obviously. His intake yesterday was 1316, output is 2600, for a -1284. White count today is 10,500, hemoglobin 8.5, hematocrit 26. Chemistry is fine. PLAN: The plan today is to clamp his NG tube for 8 hours and open it for 1 hour. I will advance him to a pureed diet. We will tentatively plan to remove his NG tube tomorrow if he continues to tolerate things as he has. cc: MD Chris Bruno Jr, MD
[2019-03-27] MEDS: NS NEB INH SCH ×2 (09:04→16:11)
--- NOTE | 2019-03-27 09:07 | Diag Imaging Result Doc PS360 ---
FLAT/UPRIGHT ABD/1 VIEW CHEST - 03/26/2019 INDICATION: post colonic obstruction TECHNIQUE: COMPARISON: 03/25/2019 FINDINGS: Stable nasogastric tube in the stomach. Stable small to moderate right basilar pleural effusion. There are some scattered linear atelectasis throughout the lung bases. Otherwise no infiltrates. Heart size is normal. Stable laparotomy incision skin darnell. Stable cholecystectomy clips. Stable surgical suture lines in the right abdomen. There is very little bowel gas in the abdomen. The appearance is nonspecific. IMPRESSION: Nonspecific findings. No change from prior. Electronically signed by Alfredo Goldsmith 03/26/2019 9:48 AM
[2019-03-27] MEDS: CLINIMIX E 4.25%-5% SOLUTION 1,000 ML IV SCH (09:12)
[2019-03-27] MEDS: FLOMAX PO SCH (09:12)
[2019-03-27] MEDS: LEVAQUIN 500 MG/D5W 500 MG/100 ML IVPB IV SCH (09:12)
[2019-03-27] MEDS: LOVENOX SUBQ SCH (09:16)
--- NOTE | 2019-03-27 09:53 | HEMO/ONC PROGRESS NOTE ---
DATE: 03/27/2019 SUBJECTIVE: Mr. Kaiser is sitting in the chair this morning. His is cleaning him in up in preparation for breakfast. He states he feels very well considering his condition. He denies any abdominal pain unless it is palpated. The NG tube is clamped. OBJECTIVE: Vital Signs: Temperature 98.6 degrees, pulse rate 86, respiratory rate 18, blood pressure 110/53, O2 saturation 95% on room air. He has an 8/10 abdominal pain. Respiratory: Chest clear to auscultation. Normal respiratory effort. Cardiac: Regular rate and rhythm, S1, S2 present. Abdomen: Distended. Pain elicited with palpation. Bowel sounds are very hypoactive. Caitlin in the abdomen are intact, clean. LABORATORY DATA: WBCs 10.49, hemoglobin 8.5, hematocrit 26.0, platelet count 293,000. Creatinine 0.8, vitamin B12 236, folate 7, total iron 16, iron percent saturation 10%. ASSESSMENT: 1. Status post right colectomy due to colonic mass. 2. Colon cancer, T3 N1, stage III. 3. Anemia. 4. 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 5. Idiopathic cirrhosis of the liver. 6. Ulcerative colitis. 7. History of deep venous thrombosis, last ultrasound revealed chronic DVT. 8. Klebsiella sepsis. Two blood cultures were positive. PLAN: The patient is having NG tube clamped for 8 hours and then open for 1 hour to observe for any fluid. Surgery will advance him to a pureed diet today, possibly remove his NG tube tomorrow if he continues to be doing well. We are monitoring his hemoglobin and hematocrit. His iron levels are low. We will give 1 dose of IV Iron and he needs B12 and folic acid supplementation. Will continue to follow. Continue lovenox while inpatient and when discharged, restart eliquis. We will follow up with him on an outpatient based as well. Dictated by NAYELY Mcfarlane for Kenneth Banks MD cc: MD Chris Harry Jr, MD MTDD
[2019-03-27] MEDS: MORPHINE IV PRN ×2 (12:39→21:42)
[2019-03-27] MEDS: ZOFRAN IV PRN (12:39)
[2019-03-27] MEDS ORDERED: INJECTAFER IV ONE (13:20)
[2019-03-27] MEDS: CYANOCOBALAMIN SUBQ SCH (14:00)
[2019-03-27] MEDS ORDERED: INJECTAFER 750 MG in NS 250 ML IV ONE (14:00)
--- NOTE | 2019-03-27 15:14 | PROGRESS NOTE ---
DATE: 03/27/2019 SUBJECTIVE: I saw the patient this morning eating breakfast. He was sitting up and had NG clamped per Dr. Brewer, having some white secretions out of his mouth and some cough with that. OBJECTIVE: Cardiovascular: RRR without murmur. Lungs: Clear. Abdomen: Active bowel sounds. Extremities: No calf tenderness or cords. No lower extremity edema except at the ankles, and he has 1-2+ edema right greater than left. Neurologic: Nonfocal. He does have a sore throat from the NG tube. LABORATORY: Labs show white count of 10.4, hemoglobin 8.5, platelets 293. Sodium 135, potassium 3.9, chloride 102, CO2 25, BUN 16, creatinine 0.8, glucose 112, calcium 8.1. B12 is 236. ASSESSMENT: 1. Postoperative day number 10 status post right colectomy due to colonic mass. 2. T3 N1 colon cancer. 3. Iron-deficiency/folic acid deficiency/B12 deficiency anemia followed by Dr. Banks. 4. 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 5. Idiopathic cirrhosis of the liver. 6. Ulcerative colitis. 7. Pulmonary nodule. 8. Prostatism with possible prostate nodule followed by Dr. Guevara. 9. History of deep venous thrombosis 1 year ago currently off of Eliquis due to anemia. He is on prophylactic Lovenox dose per Dr. Banks. 10.1 of 2 blood cultures positive for Klebsiella. 11.Chronic renal insufficiency, stable, and improved. PLAN: Tomorrow, will likely stop the Levaquin. Dr. Brewer plans on possibly removing the NG tube tomorrow. Continue amino acids and IV PPI. Anemia to be treated per Dr. Banks. cc: MD Chris Downey Jr, MD
[2019-03-27] MEDS: FOLIC ACID PO SCH (15:21)
[2019-03-28] MEDS: PROTONIX IV SCH (00:01)
[2019-03-28] MEDS: FLOMAX PO SCH ×3 (00:01→21:44)
[2019-03-28] MEDS: MORPHINE IV PRN ×4 (02:17→21:43)
[2019-03-28] MEDS: CLINIMIX E 4.25%-5% SOLUTION 1,000 ML IV SCH ×2 (02:18→17:54)
[2019-03-28] MEDS: XOPENEX NEB INH SCH ×4 (04:08→15:55)
[2019-03-28] MEDS: LOVENOX SUBQ SCH (05:56)
[2019-03-28] MEDS ORDERED: CHLORASEPTIC SPRAY MT PRN (08:21)
[2019-03-28] MEDS: LEVAQUIN 500 MG/D5W 500 MG/100 ML IVPB IV SCH (08:43)
[2019-03-28] MEDS: FOLIC ACID PO SCH (08:44)
[2019-03-28] MEDS: CYANOCOBALAMIN SUBQ SCH (08:44)
--- NOTE | 2019-03-28 08:57 | PROGRESS NOTE ---
DATE: 03/28/2019 SUBJECTIVE: The patient is alert, answers questions well, complains of sore throat, has had pain control markedly improved with morphine, and he has tolerated that better than the Dilaudid. He is not able to take oral right now due to such a sore throat. Has the NG tube still in place. Dr. Brewer is clamping that today, and likely that will come out tomorrow as per Dr. Brewer's plan. OBJECTIVE: Vital Signs: Afebrile. Vital signs stable. CV: RRR without murmur. Lungs: Clear. Abdomen: Soft. No major distention at all. Active bowel sounds. Extremities: No calf tenderness, cords, or edema. There is 2+ edema at the ankles, right greater than left. Neurologic: Nonfocal. Cranial nerves intact. He moves all extremities well. LABORATORY DATA: No new lab data today. ASSESSMENT: 1. Postoperative day #11, status post right colectomy due to colonic mass, improving slowly. 2. T3 N1 colon cancer. 3. Iron deficiency/folic acid deficiency/B12 deficiency anemia, followed by Dr. Banks. 4. Coagulopathy secondary to cirrhosis of liver. 5. Idiopathic cirrhosis of the liver. 6. Ulcerative colitis. 7. Pulmonary nodule. 8. Prostatism with possible prostate nodule, followed by Dr. Guevara. 9. History of deep venous thrombosis 1 year ago, currently off Eliquis, but on prophylactic doses of Lovenox per Dr. Banks. 10. One of two blood cultures positive for Klebsiella. 11. Chronic renal insufficiency, much improved and stable. PLAN: Dr. Brewer has plans to remove the NG tube tomorrow, and clamp it today. Continue amino acids, IV PPI. I am going to monitor on the Levaquin today as he had a very low-grade fever of 99.8. Will likely discontinue that tomorrow if he remained without significant fever. cc: MD Chris Downey Jr, MD
--- NOTE | 2019-03-28 10:34 | Diag Imaging Result Doc PS360 ---
EXAM: FLAT/UPRIGHT ABD/1 VIEW CHEST 03/28/2019 HISTORY: History of obstruction TECHNIQUE: Flat and upright abdomen and AP chest COMMENT: There is an NG tube with its tip in the stomach. There are surgical skin clips in the midline from the epigastrium to the pelvis. There are apparent staple lines in the right abdomen and surgical clips in the right upper quadrant. The abdomen appears somewhat distended and there is a relative posteriorly of bowel gas with the exception of the stomach. The possibility of ascites and/or fluid-filled small bowel and colonic loops cannot be excluded. Compared to 03/26/2019 the appearance of the abdomen has not changed appreciably. There is apparent pleural fluid on the right and there is atelectasis versus pneumonia in the right middle and lower lobes. The platelike atelectasis present previously in the lingula has apparently resolved. IMPRESSION: Right pleural effusion and basilar atelectasis versus pneumonia. Possible ileus with fluid-filled bowel loops, plus minus ascites. Electronically signed by Robin Milligan 03/28/2019 10:32 AM
--- NOTE | 2019-03-28 11:35 | HEMO/ONC PROGRESS NOTE ---
DATE: 03/28/2019 SUBJECTIVE: Mr. Kaiser is lying in bed. He is complaining of a sore throat due to the NG tube in place. Dr. Brewer is also at bedside. He states that he feels well today other than the sore throat. The NG tube is clamped at this time. OBJECTIVE: Vital Signs: Temperature 98.5 degrees, pulse rate 87, respiratory rate 18, blood pressure 137/61, O2 saturation 92% on room air. He is in 0/10 pain. General: The patient appears in no acute distress. Respiratory: Lungs are clear to auscultation. Normal respiratory effort. Cardiac: S1 and S2 noted. Abdomen: Distended. Pain with palpation. Caitlin midline, clean and dry. Bowel sounds are hypoactive. Laboratory: No labs today. Abdominal x-ray from this morning shows right pleural effusion and bibasilar atelectasis versus pneumonia, possible ileus with fluid-filled bowel loops plus/minus ascites. ASSESSMENT: 1. Status post right colectomy due to colonic mass. 2. Colon cancer, T3, N1, stage III. 3. Anemia. 4. 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 5. Idiopathic cirrhosis of the liver. 6. Ulcerative colitis. 7. History of deep venous thrombosis, on lovenox. 8. Klebsiella sepsis. Two blood cultures were positive. PLAN: Dr. Brewer plans to remove the NG tube tomorrow. It will remain clamped today. Continue treatment per Dr. Vasquez. We will continue to monitor his anemia and we plan to follow up on an outpatient basis once he is discharged. Dictated by NAYELY Mcfarlane for Kenneth Banks MD cc: MD Chris Harry Jr, MD MTDD
[2019-03-28] MEDS: NS NEB INH SCH (15:55)
[2019-03-28] MEDS: ZOFRAN IV PRN (20:41)
--- NOTE | 2019-03-28 22:12 | Diag Imaging Result Doc PS360 ---
CT ABD/PELVIS W/PO AND IV CON - 03/28/2019 INDICATION: post op right colectomy for obstruction COMPARISON: 03/15/2019 FINDINGS: There is a nasogastric tube in good position in the stomach. There is a large right and small to moderate left pleural effusion. There is a moderate amount of ascites, that has increased since prior. There is severe body wall edema. There is trace peritoneal free air. No abnormal bowel dilation this time. No evidence of oral contrast leak. There are changes of right hemicolectomy. Urinary bladder remains normal. Stable suspicious prostate gland mass. IMPRESSION: 1. Negative for bowel obstruction or leak. 2. Worsening ascites. Large right and [id number] left pleural effusions. Severe body wall edema. This exam was performed using automated exposure control, adjustment of mA or kV according to patient size, and/or use of iterative reconstruction technique Electronically signed by Alfredo Goldsmith 03/28/2019 10:10 PM
[2019-03-29] MEDS: PROTONIX IV SCH (00:45)
[2019-03-29] MEDS: XOPENEX NEB INH SCH ×5 (03:18→23:15)
[2019-03-29] MEDS: CLINIMIX E 4.25%-5% SOLUTION 1,000 ML IV SCH ×2 (03:37→18:02)
[2019-03-29] MEDS: MORPHINE IV PRN ×3 (03:37→13:56)
[2019-03-29] MEDS: LOVENOX SUBQ SCH (05:44)
[2019-03-29] MEDS: LEVAQUIN 500 MG/D5W 500 MG/100 ML IVPB IV SCH (08:56)
[2019-03-29] MEDS: FOLIC ACID PO SCH (08:56)
[2019-03-29] MEDS: CYANOCOBALAMIN SUBQ SCH (08:56)
[2019-03-29] MEDS: FLOMAX PO SCH ×2 (08:56→22:16)
[2019-03-29] MEDS: ALDACTONE PO SCH (09:00)
[2019-03-29] MEDS: REGLAN IV SCH ×3 (09:01→22:17)
--- NOTE | 2019-03-29 10:24 | HEMO/ONC PROGRESS NOTE ---
DATE: 03/29/2019 SUBJECTIVE: Mr. Kaiser is lying in bed and appears somewhat uncomfortable. He is complaining of a sore throat due to the NG tube that had been in his throat. States he is unable to eat. The Chloraseptic is not helping him and he is rather uncomfortable. His states that they drained it this morning and got out approximately 200 mL of fluid. His abdomen remains distended although he does not complain of any pain to his abdomen. OBJECTIVE: VITAL SIGNS: Temperature 98.5 degrees, pulse rate 95, respiratory rate 16, blood pressure 117/64, O2 sat 95% on room air. 4/10 pain. LUNGS: Clear to auscultation. CARDIOVASCULAR: S1, S2 noted. ABDOMEN: Soft, mildly distended. Pain with palpation. EXTREMITIES: Bilateral ankle and feet edema. LABORATORY DATA: No labs today. RADIOLOGY: Yesterday's CT of the abdomen and pelvis was negative for bowel obstruction or leak. He was noted to have worsening ascites and pleural effusions. Severe body wall edema. ASSESSMENT: 1. Status post right colectomy due to colonic cancer. 2. Colon cancer T3 N1 stage III. 3. Anemia. 4. 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 5. Idiopathic cirrhosis of the liver. 6. Ulcerative colitis. 7. History of deep venous thrombosis on Lovenox. 8. Klebsiella sepsis, cultures were positive. PLAN: We continue to follow any recommendations per Surgery and Dr. Vasquez. We will continue to monitor his anemia. We will follow up with him on an outpatient basis as appropriate. Dictated by NAYELY Mcfarlane for Kenneth Banks MD Patient seen and examined. As above. Is status post IV iron for his anemia. Continue B12 and folic supplementation. Continue Lovenox for DVT prevention. No other recommendations from my standpoint. Call over weekend if needed. Kenneth Banks M.D. [facility]
--- NOTE | 2019-03-29 12:08 | PROGRESS NOTE ---
DATE: 03/29/2019 CONTINUATION REPORT PLAN: Trying some Seroquel at night to try to help him rest. He can use it if he desires. He is sensitive to medicines. We will add back Aldactone at low dose. Dr. Brewer is trying to remove the NG tube, but the patient is somewhat reluctant. cc: MD Chris Downey Jr, MD
--- NOTE | 2019-03-29 13:08 | GENERAL SURGERY PROGRESS NOTE ---
DATE: 03/29/2019 SUBJECTIVE: Mr. Kaiser now 12 days after his operative intervention which is a right colectomy for obstruction. OBJECTIVE: Afebrile, heart rate 95, blood pressure 117/64. Intake yesterday is 1920, output was recorded as 100 in his NG tube. His is urine output was not measured. He did have a small bowel movement last night. His CT scan done yesterday he did not show any evidence of pathology that would require operative intervention. He does have pleural effusions and ascites. His bowel is not obstructed. His stomach still has fluid in it an does not empty well. PLAN: To get the dietitian to see him regarding dietary restrictions then dietary requests. I will put him on Reglan to help his stomach empty. He is scared to have his NG-tube removed because of the fear that it will require replacement, so we have left it in and clamped it. He may need an appetite stimulant at some point too. [facility] will cover in my absence. cc: MD Chris Bruno Jr, MD
[2019-03-29] MEDS: ZOFRAN IV PRN (14:12)
[2019-03-29] MEDS: SEROQUEL PO SCH (22:16)
[2019-03-30] MEDS: MORPHINE IV PRN ×2 (00:34→12:31)
[2019-03-30] MEDS: XOPENEX NEB INH SCH ×4 (04:02→21:20)
[2019-03-30] MEDS: LOVENOX SUBQ SCH (05:54)
[2019-03-30] MEDS: REGLAN IV SCH ×4 (07:11→21:21)
[2019-03-30] MEDS: PROTONIX IV SCH ×2 (07:11→21:38)
--- NOTE | 2019-03-30 07:43 | GENERAL SURGERY PROGRESS NOTE ---
DATE: 03/30/2019 SUBJECTIVE: Patient seems to be doing okay. He is passing gas, having bowel movements. OBJECTIVE: Vital Signs: Patient is currently afebrile. His vital signs are stable. General exam: No acute distress. Cardiovascular: Regular rate and rhythm. Lungs: Grossly clear. Abdomen: Soft, nontender, nondistended. ASSESSMENT AND PLAN: A 78-year-old status post open right hemicolectomy. 1. Postoperative state: At this time, he seems to be doing okay. He had his nasogastric tube out today. He is started on Reglan for what sounds like gastroparesis. We will keep him on his current diet for right now, which is mechanical soft diet, and monitor him. cc: MD Chris London Jr, MD
[2019-03-30] MEDS: NS NEB INH SCH (10:02)
[2019-03-30] MEDS: FOLIC ACID PO SCH (10:06)
[2019-03-30] MEDS: ALDACTONE PO SCH (10:06)
[2019-03-30] MEDS: FLOMAX PO SCH ×2 (10:06→21:20)
[2019-03-30] MEDS: CYANOCOBALAMIN SUBQ SCH (10:06)
[2019-03-30] MEDS: CLINIMIX E 4.25%-5% SOLUTION 1,000 ML IV SCH ×3 (10:13→21:45)
--- NOTE | 2019-03-30 16:48 | PROGRESS NOTE ---
DATE: 03/30/2019 SUBJECTIVE: A 78-year-old white gentleman with a history of cirrhosis, most likely JC, basically had right hemicolectomy for colon mass and is at bedside. NG tube was discontinued. He is not offering any complaints. He is passing gas. He has been in the hospital since 03/15/2019. PAST MEDICAL HISTORY: Reviewed. PAST SURGICAL HISTORY: Reviewed. MEDICATIONS: Reviewed. ALLERGIES: Gluten, lactose, sulfa drugs. PHYSICAL EXAMINATION: Vital signs: Temperature is 98.4 degrees, pulse is 100, blood pressure is 108/79. General appearance: He is a cachectic, distended belly, not in respiratory distress, and the room was extremely hot. HEENT: There is emaciation of the temporal muscles. Neck: Supple. Chest: Bilateral air entry. Heart: Sounds are regular. Abdomen: Belly is soft, distended with midline abdominal scar with darnell present. Extremities: Trace edema in ankles noted. No obvious deficits. No asterixis noted. LABORATORY DATA: Labs on 03/27/2019, white cell count 10, hematocrit 26, platelets 293,000. Sodium 135, potassium 3.9, chloride 102, BUN 16, creatinine 0.8 glucose 112. B12 and folates were low. MICROBIOLOGY CULTURES: 1. Blood cultures grew Klebsiella pneumoniae, /2 on 03/15/2019. 2. The patient did receive 4 units of packed RBCs. IMAGIN. CT scan of the abdomen and pelvis on 03/15/2019, high-grade obstruction small bowel at the level of hepatic flexure tight stricture. Small amount of ascites A 2 cm suspicious nodule in the right lower lobe highly suspicious mass of the prostate gland. 2. CT scan on 03/28/2019 showed negative bowel leak, worsening of ascites, large right and left pleural effusions. 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 Lymph nodes were positive 10/25. ASSESSMENT AND PLAN: 1. Colon cancer, metastatic. 2. Cirrhosis with ascites. 3. Pleural effusions. 4. B12 deficiency. 5. Folic acid deficiency. Prostate mass. PLAN OF CARE: 1. Continue folic acid, B12 injections. 2. Ascites. Aldactone. 3. Gastrointestinal prophylaxis with IV Protonix. 4. DVT prophylaxis with Lovenox. Continue on IV Clinimix. Repeat the labs in the morning as well as x-ray. LEVEL OF DOCUMENTATION: 35 minutes. cc: MD Chris Sheehan Jr, MD
[2019-03-30] MEDS: SEROQUEL PO SCH (21:20)
[2019-03-31] MEDS: CLINIMIX E 4.25%-5% SOLUTION 1,000 ML IV SCH ×2 (02:52→12:02)
[2019-03-31] MEDS: REGLAN IV SCH ×4 (02:52→20:54)
[2019-03-31] MEDS: XOPENEX NEB INH SCH ×4 (05:04→23:35)
[2019-03-31] MEDS: LOVENOX SUBQ SCH (06:24)
[2019-03-31 06:55] LABS: HEMOGLOBIN 7.7 g/dL (14.0-18.0); MCH 25.3 PG (27-31); MCV 78.9 FL (81-99); RBC 3.04 XMIL (4.7-6.1); WBC 4.85 X1000 (4.8-10.8)
[2019-03-31 06:56] LABS: BASO# 0.01 X1000 (0.0-0.2); BASO% 0.2 % (0.0-0.8); EOS# 0.12 X1000 (0.0-0.7); EOS% 2.5 % (0.0-10.0); LYMPH# 0.84 X1000 (1.2-3.4); LYMPH% 17.3 % (20.5-51.1); MCHC 32.1 g/dL (33-37); MONO# 0.34 X1000 (0.11-0.59); MPV 9.1 FL (7.4-10.4); NEUT# 3.54 X1000 (1.4-6.5); PLT 328 X1000 (130-400)
--- NOTE | 2019-03-31 07:14 | GENERAL SURGERY PROGRESS NOTE ---
DATE: 03/31/2019 SUBJECTIVE: Patient seems to be doing okay. NG tube is out. He tolerated that. OBJECTIVE: Vital Signs: Patient is currently afebrile. His vital signs are stable. General: No acute distress. Cardiovascular: Regular rate and rhythm. Lungs: Grossly clear. Abdomen: Soft, nondistended. Some faint but hypoactive bowel sounds auscultated. ASSESSMENT AND PLAN: A 78-year-old status post colectomy. Postoperative state at this time. He seems to be doing okay. He tolerated his NG tube being out. He may still have somewhat of an ileus. I told him not to try to take too much. He is on Clinimix. He is having bowel movements, so we will monitor him closely. cc: MD Chris London Jr, MD
[2019-03-31 07:23] LABS: ESTIMATED GFR > 60
[2019-03-31 07:25] LABS: AGAP 8; ALB/GLOB RATIO 0.5; ALBUMIN 1.5 g/dL (3.5-5.0); ALKALINE PHOSPHATASE 106 U/L (32-122); BUN 29 mg/dL (8-22); CHLORIDE 98 mmol/L (98-107); COSMO 269; CREATININE 0.7 mg/dL (0.7-1.2); GLUCOSE 99 mg/dL (70-104); GOT 33 U/L (10-34); GPT 19 U/L (10-44); POTASSIUM 4.5 mmol/L (3.5-5.1); SODIUM 131 mmol/L (136-145); TCO2 25 mmol/L (25-35); TOTAL BILIRUBIN 0.24 mg/dL (0.20-1.00); TOTAL PROTEIN 4.7 g/dL (6.3-8.3)
--- NOTE | 2019-03-31 08:01 | Diag Imaging Result Doc PS360 ---
EXAM: CHEST-2 VIEWS - 03/31/2019 HISTORY: hypoxia TECHNIQUE: Chest two views COMPARISON: 03/28/2019 FINDINGS: There is a moderate right pleural effusion which appears of increased mildly. There is some hazy infiltrate or atelectasis on the right which appears to be increased mildly. The left lung appears clear. There is a possible small left pleural effusion visible on the lateral view. There is no pneumothorax identified. IMPRESSION: Mild increase in pleural effusion and hazy atelectasis or infiltrate on the right. Electronically signed by Aleksandr Aguila 03/31/2019 7:58 AM
[2019-03-31] MEDS: FLOMAX PO SCH ×2 (09:09→20:55)
[2019-03-31] MEDS: CYANOCOBALAMIN IM SCH (09:09)
[2019-03-31] MEDS: ALDACTONE PO SCH (09:09)
[2019-03-31] MEDS: FOLIC ACID PO SCH (09:09)
[2019-03-31] MEDS: NS NEB INH SCH ×2 (10:30→15:41)
[2019-03-31] MEDS ORDERED: LASIX IV ONE (16:01)
--- NOTE | 2019-03-31 17:22 | PROGRESS NOTE ---
DATE: 03/31/2019 SUBJECTIVE: The patient is doing a little better. is at bedside. He is very pale. Chest x- ray worsening of the pleural effusion. He is getting on Clinimix. EXAMINATION: Temperature is 98 degrees, pulse 95, blood pressure 124/60.HEENT: He is pale. Decreased breath sounds on the right side. Belly is soft with ascites. Midline darnell present. Trace edema. DIAGNOSTIC STUDIES: CBC: White cell count 4.8, hematocrit 24, platelet count 328,000. SMA-7: Sodium 131, BUN 29, creatinine 0.7. LFTs were normal. Chest x-ray: Pleural effusion worsening on the right side. ASSESSMENT: 1. Status post right hemicolectomy. 2. Anemia. 3. Cirrhosis of liver. 4. Deconditioning. 5. B12 deficiency. PLAN OF CARE: 1. B12 injection was given. 2. Transfuse a unit of packed RBC followed by Lasix for the low hematocrit. 3. Patient has been on Clinimix for nutrition. 4. We will repeat the labs in the morning and continue present treatment. LEVEL OF DOCUMENTATION: 25 minutes. cc: MD Chris Sheehan Jr, MD
[2019-03-31] MEDS ORDERED: NS 500 ML ONE (18:04)
[2019-03-31] MEDS: SEROQUEL PO SCH (20:55)
[2019-03-31] MEDS: PROTONIX IV SCH (23:30)
[2019-04-01] MEDS: REGLAN IV SCH ×4 (02:35→20:33)
[2019-04-01] MEDS: XOPENEX NEB INH SCH ×4 (05:10→21:26)
[2019-04-01] MEDS: LOVENOX SUBQ SCH (06:19)
[2019-04-01] MEDS: CLINIMIX E 4.25%-5% SOLUTION 1,000 ML IV SCH ×2 (06:19→20:32)
[2019-04-01 07:01] LABS: BASO# 0.01 X1000 (0.0-0.2); BASO% 0.2 % (0.0-0.8); EOS# 0.09 X1000 (0.0-0.7); EOS% 1.4 % (0.0-10.0); HEMOGLOBIN 9.5 g/dL (14.0-18.0); IMM GRAN# 0.02 X1000 (0.0-0.04); IMM GRAN% 0.3 % (0.0-0.5); LYMPH# 1.24 X1000 (1.2-3.4); LYMPH% 19.1 % (20.5-51.1); MCHC 32.8 g/dL (33-37); MCV 79.5 FL (81-99); MONO% 7.7 % (1.7-9.3); MPV 9.1 FL (7.4-10.4); NEUT# 4.63 X1000 (1.4-6.5); NEUT% 71.3 % (42.2-75.2); PLT 360 X1000 (130-400); RBC 3.65 XMIL (4.7-6.1); RDW 20.7 % (11.5-14.5); WBC 6.49 X1000 (4.8-10.8)
[2019-04-01 07:14] LABS: AGAP 8; BUN 27 mg/dL (8-22); CALCIUM 8.2 mg/dL (8.8-10.2); CHLORIDE 96 mmol/L (98-107); COSMO 270; CREATININE 0.9 mg/dL (0.7-1.2); ESTIMATED GFR > 60; GLUCOSE 101 mg/dL (70-104); POTASSIUM 4.5 mmol/L (3.5-5.1); SODIUM 132 mmol/L (136-145); TCO2 28 mmol/L (25-35)
--- NOTE | 2019-04-01 07:23 | GENERAL SURGERY PROGRESS NOTE ---
DATE: 04/01/2019 SUBJECTIVE: Patient seems to be doing okay. He is not taking in much p.o., per the . OBJECTIVE: Vital Signs: The patient is currently afebrile. His vital signs are stable. General Examination: No acute distress. Cardiovascular: Regular rate and rhythm. Lungs: Grossly clear. Abdomen: Soft, nontender, nondistended. Laboratory: Reviewed from yesterday. Of note, his albumin is 1.5. ASSESSMENT AND PLAN: A 78-year-old status post colectomy. Postoperative state. At this time, he seems to be doing well but oral intake is his main issue. We will see how he does as far as oral intake. He is on Clinimix. He does have a low albumin but there is concern that he might have cirrhosis so that may be contributing to it. Otherwise, we will continue to monitor him and encourage ambulation and movement with physical therapy. cc: MD Chris London Jr, MD
[2019-04-01] MEDS: NS NEB INH SCH ×2 (07:47→15:20)
[2019-04-01] MEDS: FLOMAX PO SCH ×2 (09:22→20:32)
[2019-04-01] MEDS: FOLIC ACID PO SCH (09:22)
[2019-04-01] MEDS: CYANOCOBALAMIN IM SCH (09:23)
[2019-04-01] MEDS: ALDACTONE PO SCH (09:24)
[2019-04-01] MEDS: SEROQUEL PO SCH (20:32)
[2019-04-01] MEDS: PROTONIX IV SCH (23:18)
[2019-04-02] MEDS: REGLAN IV SCH ×3 (02:47→15:39)
[2019-04-02] MEDS: XOPENEX NEB INH SCH ×4 (03:28→21:20)
[2019-04-02] MEDS: LOVENOX SUBQ SCH (06:11)
[2019-04-02] MEDS: FOLIC ACID PO SCH (08:41)
[2019-04-02] MEDS: CYANOCOBALAMIN IM SCH (08:41)
[2019-04-02] MEDS: FLOMAX PO SCH (08:41)
[2019-04-02] MEDS: ALDACTONE PO SCH (08:41)
[2019-04-02] MEDS: CLINIMIX E 4.25%-5% SOLUTION 1,000 ML IV SCH ×2 (09:33→10:45)
--- NOTE | 2019-04-02 13:46 | HEMO/ONC PROGRESS NOTE ---
DATE: 04/02/2019 SUBJECTIVE: Mr. Kaiser is lying in bed and appears comfortable today. His NG tube has been removed. He states he is feeling better than he has for several days. He explains that he sat out of the bed most of yesterday and had a really good nights sleep. He is hoping his appetite improves today. His pain is very minimal at this time. They are hoping to go home soon with home health and physical therapy at home. OBJECTIVE: Vital signs: Temperature 98.1, pulse rate 78, respiratory rate 18, blood pressure 107/58, O2 saturation 93% on room air. 0 out of 10 pain. PHYSICAL EXAMINATION: Cardiovascular: Normal S1-S2. Respiratory: Lungs are clear to auscultation. Abdomen: Soft, slightly distended. Mild pain to palpation to the right lower quadrant. [place] are midline. They are clean and healthy. LABORATORY DATA: No labs today. ASSESSMENT: 1. Status post right hemicolectomy due to colonic cancer. 2. Colon cancer T3N1, Stage III. 3. Anemia. 4. Cirrhosis of the liver. 5. Ulcerative colitis. 6. Deconditioning. 7. B12 and folate deficiency 8. Chronic DVT. PLAN OF CARE: We will continue to monitor patient's anemia. He is status post one iron infusion and one blood transfusion. We will continue to wait as he becomes stronger and heals. We will see him on an outpatient basis for evaluation of cancer treatment upon discharge. Dictated by NAYELY Mcfarlane for Kenneth Banks MD Patient seen and examined. As above. No new recommendations. Kenneth Banks M.D. cc: MD Chris Harry Jr, MD MTDD
[2019-04-02] MEDS ORDERED: IMODIUM LIQUID PO PRN (17:51)
[2019-04-02] MEDS ORDERED: CALMOSEPTINE OINTMENT TOP PRN (17:53)
[2019-04-03] MEDS: PROTONIX IV SCH (00:23)
[2019-04-03] MEDS: FLOMAX PO SCH ×3 (00:23→21:08)
[2019-04-03] MEDS: CLINIMIX E 4.25%-5% SOLUTION 1,000 ML IV SCH ×4 (00:23→21:08)
[2019-04-03] MEDS: WELCHOL PO SCH ×4 (00:54→17:43)
[2019-04-03] MEDS: REGLAN IV SCH ×5 (00:55→21:09)
[2019-04-03] MEDS: SEROQUEL PO SCH ×2 (00:55→21:09)
[2019-04-03] MEDS: XOPENEX NEB INH SCH ×4 (04:08→21:25)
[2019-04-03] MEDS: LOVENOX SUBQ SCH (06:02)
[2019-04-03] MEDS: NS NEB INH SCH ×2 (08:16→16:13)
[2019-04-03] MEDS: CYANOCOBALAMIN IM SCH (08:51)
[2019-04-03] MEDS: ALDACTONE PO SCH (08:51)
[2019-04-03] MEDS: FOLIC ACID PO SCH (08:51)
--- NOTE | 2019-04-03 16:34 | PROGRESS NOTE ---
DATE: 04/01/2019 SUBJECTIVE: Patient overall is stable. Did receive 1 unit packed red blood cells transfused per Dr. Flaherty last evening as his hemoglobin dropped to 7.7. He has been able to eat a little bit and has had the NG tube removed over the weekend, and his throat is feeling better overall. OBJECTIVE: Afebrile. Vital signs stable.Cardiovascular: RRR. Lungs: Minimal decreased breath sounds at the lung base. Otherwise CTA. Abdomen: Mild ascites. Vertical incision is healing well with darnell in place. Extremities: 2 to 3+ ankle edema, right greater than left. No calf tenderness or cords. Neurologic: Nonfocal. DIAGNOSTIC STUDIES: Sodium 132, potassium 4.5, chloride 96, CO2 of 28, BUN 27, creatinine 0.9, calcium 8.2. White count 6.49, hemoglobin 9.5, platelets 360,000. ASSESSMENT: 1. Postoperative status post right colectomy due to colonic mass. 2. T3N1 colon cancer. 3. Iron deficiency/folic acid deficiency/B12 deficiency anemia. Followed by Dr. Banks. 4. 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 5. Idiopathic cirrhosis of the liver with ascites. 6. Ulcerative colitis. 7. Pulmonary nodule. 8. Prostatism with possible prostate nodule, stable with Scherer catheter out. 9. History of deep vein thrombosis 1 year ago. Currently on prophylactic dose of Lovenox per Dr. Banks. 10. One of two blood cultures positive for Klebsiella, with patient having received almost 2 weeks of Levaquin. 11. Chronic renal insufficiency. PLAN: NG tube is out. He is on Reglan per Surgery. He remains on Xopenex nebulizer treatments, prophylaxis of DVT with Lovenox. He is on Clinimix. He is taking Seroquel at night for sleep at low dose. On b.i.d. Flomax for prostatism. Is back on Aldactone 25 mg q.a.m. Continue to try to escalate his ambulatory status and his oral intake. cc: MD Chris Downey Jr, MD
--- NOTE | 2019-04-03 21:10 | PROGRESS NOTE ---
DATE: 04/03/2019 SUBJECTIVE: Patient has had a little less diarrhea. He had addition of Welchol to try to bulk his stool and he has some Imodium ordered as needed. The C difficile toxin and antigen were negative. He is sitting up in a chair and feels a bit stronger today, ambulated fairly well yesterday. OBJECTIVE: Vital Signs: Afebrile, vital signs stable. Cardiovascular: Regular rate and rhythm without murmur. Lungs: Clear to auscultation. Abdomen: Moderate distention consistent with some ascites. NG tube out. Extremities: No calf tenderness or cords. There is 2+ edema distal lower extremities and ankles. Neurologic: Cranial nerves are intact. No focal deficits. ASSESSMENT: 1. Postop status post right hemicolectomy secondary to colon cancer. 2. T3 N1 colon cancer. 3. Malnutrition. 4. Idiopathic cirrhosis. 5. Ulcerative colitis. 6. Pulmonary nodule. 7. Prostate nodule. 8. Diarrhea. PLAN: He is going to try to eat some more solid food. He is getting a lot of liquids in and taking in some soups. I would like to see him try to progress to a more solid food. He is continuing ambulation. We will continue Welchol to try to bulk the stool. He and his have discussed hospice care and he is contemplating that, but I advised him to continue to follow with Dr. Banks outpatient to make his final decision, so we will arrange for home health care and home PT per [facility] and if he continues to show some improvement with improvement in the diarrhea, we will likely send him home tomorrow if okay with Dr. Oden. cc: MD Chris Downey Jr, MD
[2019-04-04] MEDS: XOPENEX NEB INH SCH ×4 (05:19→21:25)
[2019-04-04] MEDS: REGLAN IV SCH ×5 (05:21→21:06)
[2019-04-04] MEDS: CLINIMIX E 4.25%-5% SOLUTION 1,000 ML IV SCH ×2 (05:21→12:34)
[2019-04-04] MEDS: PROTONIX IV SCH (05:21)
[2019-04-04] MEDS: LOVENOX SUBQ SCH (05:57)
[2019-04-04] MEDS: ALDACTONE PO SCH ×2 (06:24→14:22)
[2019-04-04] MEDS: FLOMAX PO SCH ×3 (06:24→21:05)
--- NOTE | 2019-04-04 08:06 | HEMO/ONC PROGRESS NOTE ---
DATE: 04/03/2019 SUBJECTIVE: Mr. Kaiser is lying in bed. His is getting him cleaned up for breakfast. He states this is the best he has felt. He is continuing to improve. He had his darnell removed from his abdomen yesterday. His abdomen remains bloated and that is his only complaint. They are hoping to go home today or tomorrow. OBJECTIVE: Vital Signs: Temperature 98.3 degrees, pulse rate 83, respiratory rate 16, blood pressure 126/62, O2 saturation 96% on room air. He is in 0/10 pain. Cardiovascular: Normal S1, S2. Respiratory: Lungs are clear to auscultation. Abdomen: Soft, slightly distended. Mild pain with palpation to the right lower quadrant, darnell have been removed. Scar appears to be healing well. Skin: Intact. Extremities: Right lower leg continues to be swollen. LABORATORY: No labs today. ASSESSMENT: 1. Status post right hemicolectomy due to colon cancer. 2. Colon cancer, T3, N1, stage III. 3. Anemia. 4. Cirrhosis of the liver. 5. Ulcerative colitis. 6. Deconditioning. 7. B12 and folate deficiency. 8. Chronic deep venous thrombosis. PLAN: We will continue to monitor the patient's anemia and treat as necessary. He is status post 1 dose of IV iron and a blood transfusion. We will continue to wait for him to become stronger. We will follow up with him on an outpatient basis for evaluation of his cancer treatment upon discharge. No new recommendations at this time. Dictated by NAYELY Mcfarlane for Kenneth Banks MD Patient seen and examined. As above. No new recomendations. Lovenox for now. Change to eliquis when about to be discharged. Call with questions. WIll sign off. Thanks. Kenneth Banks MD. [facility]
[2019-04-04] MEDS: NS NEB INH SCH ×2 (08:35→16:11)
[2019-04-04] MEDS: CYANOCOBALAMIN IM SCH (09:09)
[2019-04-04] MEDS: WELCHOL PO SCH ×3 (09:09→17:08)
[2019-04-04] MEDS: FOLIC ACID PO SCH (09:09)
--- NOTE | 2019-04-04 12:45 | GENERAL SURGERY PROGRESS NOTE ---
DATE: 04/04/2019 SUBJECTIVE: Patient seems to be doing okay. OBJECTIVE: Vital Signs: Patient is currently afebrile. Vital signs stable. General: No acute distress. Cardiovascular: Regular rate and rhythm. Lungs: Grossly clear. Abdomen: Soft, distended but appropriately tender. Incision is healing well. ASSESSMENT AND PLAN: A 78-year-old gentleman status post colectomy. Postoperative state. At this time, surgically he seems to be doing well. He might have developed ascites and may need eventual paracentesis but at this time, we will defer that to Dr. Vasquez. From a surgical point of view, he could probably be discharged. cc: MD Chris London Jr, MD
[2019-04-04] MEDS ORDERED: CLINIMIX E 4.25%-5% SOLUTION 1,000 ML IV SCH (13:10)
[2019-04-04] MEDS ORDERED: KLOR-CON PO SCH (13:15)
[2019-04-04] MEDS: LASIX PO SCH (14:40)
--- NOTE | 2019-04-04 15:23 | PROGRESS NOTE ---
DATE: 04/04/2019 SUBJECTIVE: Patient overall not feeling well today. He appears weak. Ascites has increased in his abdomen and he has moderate to severe distention. He is laying flat to breathe, but appears somewhat drowsy today. OBJECTIVE: Vital signs: Afebrile, pulse 85, respirations 18, blood pressure 138/68, O2 saturation on room air 98%. CV: RRR. Lungs: Fairly clear. Abdomen: Moderate to severe ascites. Extremities: There is 2+ edema in the distal lower extremities. Neurologic: Cranial nerves are intact. He has a weak voice and appears very weak overall. Physical therapy continues to work with the patient and he has been able to ambulate some. Bowel movements have decreased with the Welchol. ASSESSMENT: 1. Postoperative, status post right hemicolectomy secondary to colon cancer. 2. T3, N1 colon cancer. 3. Diarrhea, improved. 4. Ulcerative colitis. 5. Idiopathic cirrhosis with reaccumulation of ascites. 6. Malnutrition. 7. Pulmonary nodule. 8. Prostate nodule. 9. History of deep vein thrombosis 1 year ago with patient remaining quite hypercoagulable due to his colon cancer. PLAN: He is continue to try to eat some solid food, mainly soups and drinking a lot of Ensure Clear currently. I will continue Welchol to bulk the stool. We will add back some low-dose Lasix and continue Aldactone 25 mg q.a.m. Continue nebulizer treatments and physical therapy. We will resume Eliquis as patient is adamant he wants to stop the Lovenox subcutaneous injections. He has gotten home health care and home physical therapy arranged now per the social workers and we will get him a lift chair. They have already procured a home hospital bed. We will plan on discharge in the morning unless he does not do well. cc: MD Chris Downey Jr, MD
--- NOTE | 2019-04-04 15:49 | GENERAL SURGERY PROGRESS NOTE ---
DATE: 04/02/2019 SUBJECTIVE: Patient seems to be doing okay but he is still not eating very much. OBJECTIVE: Vital Signs: Patient is currently afebrile. His vital signs are stable. General: No acute distress. Cardiovascular: Regular rate and rhythm. Lungs: Grossly clear. Abdomen: Soft, nondistended. LABORATORY DATA: Reviewed from yesterday. ASSESSMENT AND PLAN: A 78-year-old gentleman status post colectomy. Postoperative state. At this time, oral intake seems to be his main issue. May need to consider stopping his Clinimix. Otherwise, he needs to continue moving with Physical Therapy. I suspect he is severely deconditioned. We may need to consider even rehab versus home physical therapy. cc: MD Chris London Jr, MD
[2019-04-04] MEDS ORDERED: PROTONIX PO SCH (21:00)
[2019-04-04] MEDS: SEROQUEL PO SCH (21:06)
[2019-04-05] MEDS: REGLAN IV SCH ×2 (03:40→08:07)
[2019-04-05] MEDS: XOPENEX NEB INH SCH ×2 (05:55→10:46)
[2019-04-05] MEDS: WELCHOL PO SCH (08:05)
[2019-04-05] MEDS: FOLIC ACID PO SCH (08:06)
[2019-04-05] MEDS: ALDACTONE PO SCH (08:06)
[2019-04-05] MEDS: FLOMAX PO SCH (08:06)
[2019-04-05] MEDS: LASIX PO SCH (08:07)
[2019-04-05] MEDS ORDERED: ELIQUIS PO SCH (09:00)
--- NOTE | 2019-04-05 09:58 | PROGRESS NOTE ---
DATE: 04/05/2019 SUBJECTIVE: Patient is feeling some better. Abdominal ascites has seemed to decrease some over night. He is desiring to go home as planned. OBJECTIVE: Afebrile. Vital signs stable.Cardiovascular: RRR. Lungs: CTA. Abdomen: Active bowel sounds. [place] have been removed from the vertical scar in his abdomen which is healing well. There is moderate ascites, somewhat improved from yesterday. Extremities: No cords, 1 to 2+ lower extremity edema. Neurologic: Nonfocal. Cranial nerves are intact. ASSESSMENT: 1. Status post right hemicolectomy secondary to colon cancer. 2. T3, N1 colon cancer. 3. Diarrhea, resolved. 4. Ulcerative colitis. 5. Idiopathic cirrhosis with ascites. 6. Malnutrition. 7. Pulmonary nodule. 8. Prostate nodule followed by Dr. Guevara. 9. History of Deep venous thrombosis one year ago with hypercoagulable state back on his Eliquis. PLAN: Discharge home off of Welchol as he is not having any diarrhea now. He is eating some soups and drinking Ensure clear and liquids and he will try to increase his solid food intake. We will discharge him on Lasix 20 mg q.a.m., Aldactone 25 mg q.a.m. and warned him that it is imperative he drink a lot of fluids to avoid dehydration. Home health care and home physical therapy have been set up and he has been given a hospital bed for home usage and lift chair and he has resumed his home Eliquis. We will resume the glucosamine and allopurinol he was on at home and follow up with me in 6 days. He will follow up with Dr. Banks and with Dr. Marino and Dr. Guevara as well within the next 3 weeks. cc: MD Chris Downey Jr, MD
[2019-04-05 11:34] VITALS: BP 108/52
--- NOTE | 2019-04-05 13:44 | GENERAL SURGERY PROGRESS NOTE ---
DATE: 04/03/2019 SUBJECTIVE: The patient seems to be doing about the same. He is having diarrhea but the C. difficile is negative. OBJECTIVE: Vital signs: His vital signs have been stable. General exam: No acute distress. Cardiovascular: Regular rate and rhythm. Lungs grossly clear. Abdomen soft but distended. Bowel sounds auscultated. ASSESSMENT AND PLAN: A 78-year-old gentleman status post colectomy. Postoperative state at this time: Continue current treatment. Will continue mobilization with physical therapy. Will continue to monitor his diarrhea. Overall I think he is making some progress. Some of his distention may be related to his ascites. cc: MD Chris London Jr, MD
--- NOTE | 2019-04-05 13:52 | GENERAL SURGERY PROGRESS NOTE ---
DATE: 04/05/2019 SUBJECTIVE: Patient seems to be doing about the same, no major changes. OBJECTIVE: Vital Signs: Patient is currently afebrile. His vital signs are stable. General: No acute distress. Cardiovascular: Regular rate and rhythm. Lungs: Grossly clear. Abdomen: Soft, distended but appropriately tender. Incision is healing well. ASSESSMENT AND PLAN: A 78-year-old gentleman status post colectomy. 1. Postop state. At this time, he seems to be doing well from a surgical point of view, sounds like a good chance he might go home today. cc: MD Chris London Jr, MD
== END 2019-04-05 12:08 | disposition home health service (06) | DRG 330 ==
LOC: SUPCPDRO → ED 15:10 → 4N 19:56 → ICU 20:12 → 4N 03-20 01:15
PROVIDERS: ADMIT Emergency Medicine; ATTEND Family Medicine
CPT/HCPCS: 36430; 51702; 71010; 71020; 71045; 71046; 73030; 74000; 74018; 74019; 74020; 74022; 74177; 80048; 80053; 81001; 82140; 82270; 82271; 82607; 82728; 82746; 83540; 83550; 83605; 84153; 85025; 85045; 85610; 85730; 86850; 86900; 86901; 86920; 87040; 87077; 87186; 87324; 87449; 88307; 88313; 93005; 93010; 94640; 94761; 94799; 96361; 96374; 97110; 97116; 97162; 97530; 99285; 99291; A9270; C9113; C9290; G0103; J0131; J0330; J0696; J1170; J1439; J1650; J1940; J1956; J2270; J2370; J2405; J2765; J3010; J3420; J3480; J7030; J7040; J7050; P9016; P9017; Q9967; S0020; S0164; XXXXX